=== PATIENT | female | born 1930 | race Caucasian/White ===

== ENCOUNTER 2018-05-17 14:06 | Inpatient (IN) | payer BC, OTHER ==
[2018-05-17] MEDS ORDERED: SODIUM CHLORIDE 1,000 ML IV STA (14:45)
[2018-05-17 15:23] LABS: EOS % 1.2 % (0-4.5); HEMATOCRIT 29.1 % (32.4-45.2); HEMOGLOBIN 9.5 GM/dL (10.7-15.3); LYMPH % 17.8 % (8-40); MCHC 32.7 g/dl (32.0-36.0); MEAN CELL VOLUME 79.5 fl (80-96); MEAN PLT VOLUME 7.9 fl (7.5-11.1); MONO % 7.3 % (3.8-10.2); NEUT % 72.7 % (42.8-82.8); PLATELET COUNT 280 K/MM3 (134-434); RBC 3.66 M/mm3 (3.60-5.2); RDW 17.3 % (11.6-15.6); WHITE BLOOD COUNT 9.5 K/mm3 (4.0-10.0)
--- NOTE | 2018-05-17 15:27 | PDOC ---
History of Present Illness - General Chief Complaint: Respiratory Stated Complaint: LUNG CONGESTION Time Seen by Provider: 05/17/18 14:10 - History of Present Illness Initial Comments: 05/17/18 15:19 The patient is an 87 year old female with a past medical history of hypothyroid , HLD, brain aneurysm who presents to the emergency department for evaluation of cough and generalized weakness. As per family at bedside, the patient has a 2 day history of non-productive cough with onset of labored breathing last night. As per family, patients visiting nurse heard abnormal lung sounds today , prompting her to advise the patient to be evaluated in the emergency department. The family also reports the patient had 11 loose bowel movements yesterday, described as non bloody. The patient reports mild intermittent abdominal pain. As per daughter at bedside, the patient has associated symptoms of dizziness, decreased appetite, urinary urgency with no output, and increased thirst. The patient denies recent use of antibiotics, swelling of extremities, recent falls, chest pain, and headache. Denies fevers, chills, nausea, vomiting, diarrhea, dysuria, and hematuria. Allergies: NKDA Social History: No reported alcohol, cigarette, or drug use. Surgical History: Spinal and abdominal. PCP: Dr. Richard Carroll Past History - Past Medical History Allergies/Adverse Reactions: Allergies Allergy/AdvReac Type Severity Reaction Status Date / Time No Known Allergies Allergy Verified 05/17/18 14:20 Home Medications: Ambulatory Orders Aspirin [ASA -] 81 mg PO DAILY 03/30/18 Cholecalciferol (Vitamin D3) [Vitamin D3] 1,000 unit PO BID 03/30/18 Cyanocobalamin [Vitamin B12 -] 1,000 mcg PO DAILY 03/30/18 Donepezil HCl [Aricept] 10 mg PO HS 03/30/18 Escitalopram Oxalate [Lexapro -] 10 mg PO HS 03/30/18 Levothyroxine [Synthroid -] 150 mcg PO DAILY 03/30/18 Simvastatin [Zocor -] 20 mg PO DAILY 03/30/18 Fentanyl 12 mcg TD Q72H 05/17/18 Latanoprost/Pf [Latanoprost 0.005% Eye Drop] 1 drop OU HS 05/17/18 Multivit-Min/Folic Acid/Vit K1 [Multi For Her 50 Plus Softgel] 1 each PO DAILY 05/17/18 COPD: No Dementia: Yes Hypercholesterolemia: Yes Thyroid Disease: Yes - Suicide/Smoking/Psychosocial Hx Smoking History: Former smoker Have you smoked in the past 12 months: No Number of Cigarettes Smoked Daily: 0 If you are a former smoker, when did you quit?: 0 Information on smoking cessation initiated: No Hx Alcohol Use: No Drug/Substance Use Hx: No Substance Use Type: None Review of Systems - Review of Systems Comments:: 05/17/18 15:22 GENERAL/CONSTITUTIONAL: (+)weakness. No fever or chills. HEAD, EYES, EARS, NOSE AND THROAT: No change in vision. No ear pain or discharge. No sore throat. CARDIOVASCULAR: (+)Shortness of breath. No chest pain. RESPIRATORY: (+)Cough.No wheezing, or hemoptysis. GASTROINTESTINAL: No nausea, vomiting, diarrhea or constipation. GENITOURINARY: (+)Urinary urgency. No dysuria or hematuria. MUSCULOSKELETAL: (+)Mild abdominal pain. No joint or muscle swelling or pain. No neck or back pain. SKIN: No rash NEUROLOGIC: No headache, vertigo, loss of consciousness, or change in strength/ sensation. ENDOCRINE: (+)increased thirst. No abnormal weight change. HEMATOLOGIC/LYMPHATIC: No anemia, easy bleeding, or history of blood clots. ALLERGIC/IMMUNOLOGIC: No hives or skin allergy. *Physical Exam - Vital Signs Last Vital Signs Temp Pulse Resp BP Pulse Ox 97.9 F 94 H 20 120/76 94 L 05/17/18 14:20 05/17/18 14:20 05/17/18 14:20 05/17/18 14:20 05/17/18 14:20 - Physical Exam Comments: 05/17/18 15:22 GENERAL: Awake, alert, and fully oriented, in no acute distress. HEAD: No signs of trauma EYES: PERRLA, EOMI, sclera anicteric, conjunctiva clear ENT: Auricles normal inspection, hearing grossly normal, nares patent, oropharynx clear without exudates. Moist mucosa NECK: Nontender, no stepoffs, Normal ROM, supple, no lymphadenopathy, JVD, or masses LUNGS: + bibasilar rales, Breath sounds equal, No wheezes, HEART: Regular rate and rhythm, normal S1 and S2, no murmurs, rubs or gallops ABDOMEN: + mild LLQ TTP, normoactive bowel sounds. No guarding, no rebound. No masses EXTREMITIES: Normal range of motion, no edema. No clubbing or cyanosis. No cords , erythema, or tenderness NEUROLOGICAL: Cranial nerves II through XII intact. 5/5 strength and sensation in all extremities, Normal speech, normal gait, normal cerebellar function SKIN: Warm, Dry, normal turgor, no rashes or lesions noted. ED Treatment Course - LABORATORY CBC & Chemistry Diagram: 05/17/18 15:20 05/17/18 15:13 - RADIOLOGY Radiology Studies Ordered: Category Date Time Status ABDOMEN & PELVIS CT WITH CONTR [CT] Stat CT Scan 05/17/18 14:42 Ordered CHEST PA & LAT [RAD] Stat Radiology 05/17/18 14:42 Ordered Medical Decision Making - Medical Decision Making 05/17/18 15:27 87 F with cough, weakness, and diarrhea. Exam notable for bibasilar rales on lung exam and LLQ TTP. Possible PNA. WIll also evaluate for colitis/ diverticulitis. - Labs - CXR - CTAP 05/17/18 16:52 UA consistent with UTI Pt started on ceftriaxone Pending CT Pt admitted to Dr. Garcia 05/17/18 19:03 CT shows possible small endoleak. Spoke with Dr. Blankenship and reviewed imaging report. He does not believe this is a significant finding. No indication for surgical intervention at this time. *DC/Admit/Observation/Transfer Diagnosis at time of Disposition: UTI (urinary tract infection) - Discharge Dispostion Decision to Admit order: Yes Decision to Admit order Date/Time: Decision to Admit Order Category Date Time Status Decision to Admit to Hospital Routine Admission 05/17/18 15:14 Ordered - Referrals - Patient Instructions - Post Discharge Activity - Attestations Physician Attestion: 05/17/18 16:53 I, Dr. Neftali Hankins MD, attest that this document has been prepared under my direction and personally reviewed by me in its entirety. I further attest, that it accurately reflects all work, treatment, procedures and medical decision -making performed by me.
[2018-05-17 15:41] LABS: URINE APPEARANCE CLOUDY; URINE BILIRUBIN NEGATIVE (<2.0 mg/dL); URINE COLOR AMBER; URINE GLUCOSE (UA) NEGATIVE (NEGATIVE); URINE KETONE NEGATIVE (NEGATIVE); URINE NITRITE POSITIVE (NEGATIVE); URINE PROTEIN NEGATIVE (NEGATIVE)
[2018-05-17 15:42] LABS: URINE LEUK ESTERASE 3+ (NEGATIVE)
[2018-05-17 15:46] LABS: EPI CELLS MODERATE /HPF (FEW); URINE BACTERIA MODERATE /hpf (NONE SEEN); URINE MUCUS RARE
[2018-05-17 15:56] LABS: ALBUMIN 2.8 g/dl (3.4-5.0); ALK PHOS 97 U/L (45-117); ANION GAP 3 MMOL/L (8-16); BILIRUBIN,TOTAL 0.4 mg/dL (0.2-1); BLOOD UREA NITROGEN 17 mg/dL (7-18); CALCIUM 8.6 mg/dL (8.5-10.1); CHLORIDE 104 mmol/L (98-107); CO2 29 mmol/L (21-32); CREATININE 0.3 mg/dL (0.55-1.3); GLUCOSE,RANDOM 94 mg/dL (74-106); LIPASE 102 U/L (73-393); N-TERMINAL BNP 290.6 pg/ml (5-450); POTASSIUM 3.9 mmol/L (3.5-5.1); SGOT/AST 12 U/L (15-37); SGPT/ALT 15 U/L (13-61); SODIUM 135 mmol/L (136-145); TOT PROT 6.1 g/dl (6.4-8.2)
[2018-05-17] MEDS ORDERED: CEFTRIAXONE 1,000 MG in DEXTROSE 5%-WATER - 50 ML IVPB ONE (16:09)
[2018-05-17] MEDS ORDERED: SODIUM CHLORIDE 0.45% 1,000 ML IV SCH (18:30)
[2018-05-17] MEDS ORDERED: FLU VACCINE QUAD 60 MCG/0.5 ML (MDV 18-19) IM ONE (18:54)
[2018-05-17] MEDS ORDERED: cefTRIAXone SODIUM 1 GM VIAL ONE (18:56)
[2018-05-17] MEDS ORDERED: DEXTROSE 5%-WATER - 50 ML IVPB ONE (18:56)
[2018-05-17] MEDS: CEFTRIAXONE 1 GM in DEXTROSE 5%-WATER - 50 ML IVPB SCH (18:59)
[2018-05-17] MEDS: ESCITALOPRAM OXALATE 10 MG TABLET (FP) PO SCH (21:27)
[2018-05-17] MEDS: LATANOPROST 0.005% OPHTH SOLN 2.5ML BOTTLE OU SCH (21:28)
[2018-05-17] MEDS: DONEPEZIL HCL 10 MG TABLET (FP) PO SCH (21:28)
[2018-05-18] MEDS: LEVOTHYROXINE NA 75 MCG TABLET (FP) PO SCH (06:26)
[2018-05-18 08:02] LABS: EOS % 1.9 % (0-4.5); HEMATOCRIT 25.7 % (32.4-45.2); HEMOGLOBIN 8.3 GM/dL (10.7-15.3); LYMPH % 13.9 % (8-40); MCH 25.9 pg (25.7-33.7); MCHC 32.5 g/dl (32.0-36.0); MEAN CELL VOLUME 79.6 fl (80-96); MONO % 6.5 % (3.8-10.2); NEUT % 76.7 % (42.8-82.8); PLATELET COUNT 215 K/MM3 (134-434); RBC 3.23 M/mm3 (3.60-5.2); RDW 16.9 % (11.6-15.6); WHITE BLOOD COUNT 7.7 K/mm3 (4.0-10.0)
[2018-05-18 08:26] LABS: ALBUMIN 2.4 g/dl (3.4-5.0); ALK PHOS 86 U/L (45-117); ANION GAP 7 MMOL/L (8-16); BILIRUBIN,TOTAL 0.3 mg/dL (0.2-1); BLOOD UREA NITROGEN 12 mg/dL (7-18); CALCIUM 8.3 mg/dL (8.5-10.1); CHLORIDE 103 mmol/L (98-107); CO2 29 mmol/L (21-32); CREATININE 0.2 mg/dL (0.55-1.3); GLUCOSE,RANDOM 90 mg/dL (74-106); POTASSIUM 3.7 mmol/L (3.5-5.1); SGOT/AST 14 U/L (15-37); SGPT/ALT 11 U/L (13-61); SODIUM 139 mmol/L (136-145); TOT PROT 5.5 g/dl (6.4-8.2)
[2018-05-18] MEDS ORDERED: DEXTROSE 5%-WATER - 50 ML IVPB ONE (09:25)
[2018-05-18] MEDS ORDERED: cefTRIAXone SODIUM 1 GM VIAL ONE (09:25)
[2018-05-18] MEDS: CEFTRIAXONE 1 GM in DEXTROSE 5%-WATER - 50 ML IVPB SCH (09:50)
[2018-05-18] MEDS: ASPIRIN 81 MG CHEWABLE TABLETS PO SCH (09:50)
--- NOTE | 2018-05-18 10:39 | HP ---
Admitting History and Physical - Primary Care Physician PCP: Richard Carroll - Admission Chief Complaint: cough, UTI History of Present Illness: ER HISTORY 05/17/18 15:19 The patient is an 87 year old female with a past medical history of hypothyroid , HLD, brain aneurysm who presents to the emergency department for evaluation of cough and generalized weakness. As per family at bedside, the patient has a 2 day history of non-productive cough with onset of labored breathing last night. As per family, patients visiting nurse heard abnormal lung sounds today , prompting her to advise the patient to be evaluated in the emergency department. The family also reports the patient had 11 loose bowel movements yesterday, described as non bloody. The patient reports mild intermittent abdominal pain. As per daughter at bedside, the patient has associated symptoms of dizziness, decreased appetite, urinary urgency with no output, and increased thirst. The patient denies recent use of antibiotics, swelling of extremities, recent falls, chest pain, and headache. Denies fevers, chills, nausea, vomiting, diarrhea, dysuria, and hematuria. Allergies: NKDA Social History: No reported alcohol, cigarette, or drug use. Surgical History: Spinal and abdominal. PCP: Dr. Richard Carroll Pt examined by me on the medical floor She is frail looking elderly female- lying in bed- no distress No SOB feels like she needs to urinate frequently Dementia spoke to daughter who said that she had been coughing while drinking water. Denies fever History Source: Family Member Limitations to Obtaining History: Dementia - Past Medical History Cardiovascular: Yes: HTN, Hyperlipdemia Endocrine: Yes: Hypothyroidism - Smoking History Smoking history: Former smoker Have you smoked in the past 12 months: No Aproximately how many cigarettes per day: 0 If you are a former smoker, when did you quit?: 0 - Alcohol/Substance Use Hx Alcohol Use: No Home Medications - Allergies Allergies/Adverse Reactions: Allergies Allergy/AdvReac Type Severity Reaction Status Date / Time No Known Allergies Allergy Verified 05/17/18 14:20 - Home Medications Home Medications: Ambulatory Orders Aspirin [ASA -] 81 mg PO DAILY 03/30/18 Cholecalciferol (Vitamin D3) [Vitamin D3] 1,000 unit PO BID 03/30/18 Cyanocobalamin [Vitamin B12 -] 1,000 mcg PO DAILY 03/30/18 Donepezil HCl [Aricept] 10 mg PO HS 03/30/18 Escitalopram Oxalate [Lexapro -] 10 mg PO HS 03/30/18 Levothyroxine [Synthroid -] 150 mcg PO DAILY 03/30/18 Simvastatin [Zocor -] 20 mg PO DAILY 03/30/18 Fentanyl 12 mcg TD Q72H 05/17/18 Latanoprost/Pf [Latanoprost 0.005% Eye Drop] 1 drop OU HS 05/17/18 Multivit-Min/Folic Acid/Vit K1 [Multi For Her 50 Plus Softgel] 1 each PO DAILY 05/17/18 Cefuroxime Axetil [Ceftin -] 500 mg PO Q12H #10 tablet 05/21/18 Review of Systems Unable to obtain ROS, reason: dementia Physical Examination Vital Signs: Vital Signs Temperature 98.1 F 05/18/18 06:56 Pulse Rate 95 H 05/18/18 06:56 Respiratory Rate 20 05/18/18 06:56 Blood Pressure 133/75 05/18/18 06:56 O2 Sat by Pulse Oximetry (%) 97 05/17/18 21:00 Constitutional: Yes: No Distress, Calm Cardiovascular: Yes: Regular Rate and Rhythm Respiratory: Yes: Diminished Gastrointestinal: Yes: Normal Bowel Sounds, Soft, Tenderness (suprapubic) Edema: No Labs: CBC, BMP 05/18/18 07:00 05/18/18 07:00 Imaging - Results Chest X-ray: Image Reviewed (NSR) Cat Scan: Report Reviewed Problem List - Problems (1) Anemia Code(s): D64.9 - ANEMIA, UNSPECIFIED (2) S/P AAA repair Code(s): Z98.890 - OTHER SPECIFIED POSTPROCEDURAL STATES; Z86.79 - PERSONAL HISTORY OF OTHER DISEASES OF THE CIRCULATORY SYSTEM (3) Severe protein-calorie malnutrition Code(s): E43 - UNSPECIFIED SEVERE PROTEIN-CALORIE MALNUTRITION (4) UTI (urinary tract infection) Code(s): N39.0 - URINARY TRACT INFECTION, SITE NOT SPECIFIED (5) Weakness generalized Code(s): R53.1 - WEAKNESS Assessment/Plan PLAN IV antibiotics await culture report CT scan reviewed- ER had discussed with DR Blankenship about endoleak - no further interventions per Surgeon. IV fluids x 24 hours Encourage diet spoke with daughter Pt is frail looking- will need to know advance directives Supportive car for now Heparin sc for DVT prophylaxis, SCD Fentanyl patch for vertebra fracture - recent history of fall
--- NOTE | 2018-05-18 11:56 | EKG ---
Test Reason : Blood Pressure : / mmHG Vent. Rate : 094 BPM Atrial Rate : 094 BPM P-R Int : 162 ms QRS Dur : 092 ms QT Int : 362 ms P-R-T Axes : 050 -40 046 degrees QTc Int : 452 ms NORMAL SINUS RHYTHM WITH SINUS ARRHYTHMIA LEFT AXIS DEVIATION INCOMPLETE RIGHT BUNDLE BRANCH BLOCK VOLTAGE CRITERIA FOR LEFT VENTRICULAR HYPERTROPHY ABNORMAL ECG WHEN COMPARED WITH ECG OF 01-OCT-2004 07:45, T WAVE AMPLITUDE HAS INCREASED IN ANTERIOR LEADS Confirmed by REMEDIOS BREEN, DEMARCO ([id number]) on 05/18/2018 11:56:33 AM Referred By: Confirmed By:DEMARCO WHITTAKER MD
--- NOTE | 2018-05-18 14:07 | CONSULT ---
Admitting History and Physical - Primary Care Physician PCP: Rafaela Garcia - Admission History of Present Illness: 87 F with cough, weakness, and diarrhea. Exam notable for bibasilar rales on lung exam and LLQ TTP. Possible PNA/colitis/diverticulitis. UA consistent with UTI CT shows possible small endoleak. Pt's family reports that she is coughing with solids and water at times, only having baby food and liquids. Poor dentition with root stubs noted. History Source: Family Member, Medical Record Limitations to Obtaining History: Clinical Condition - Smoking History Smoking history: Former smoker Have you smoked in the past 12 months: No Aproximately how many cigarettes per day: 0 If you are a former smoker, when did you quit?: 0 - Alcohol/Substance Use Hx Alcohol Use: No History - Admission Reason For Visit: COUGH - Diagnostics X-ray: Report Reviewed CT Scan: Report Reviewed - General Mental Status: Awake and Alert, Able to Follow Commands, Forgetful, Confused Attention: Intact Ability to Follow Directions: Fair Head/Neck Control: Fair (c/o back pain. Pt can not sit up, fed reclining at home.) - Hearing Hearing: Impaired Hearing Aide: No With Patient: No Speech Evaluation - Communication Primary Language: EGYPTIAN Communication: Yes: Simple Responses - Speech Production Able to Make Needs Known: Yes: WNL Intelligibility: Yes: WNL - Speech Characteristics Voice Loudness: Normal Voice Pitch: Yes: Normal Voice Phonatory-based Quality: Yes: Normal Speech Pattern: Normal Speech Clarity: < 100% Nasal Resonance: Normal Articulation: Yes: Precise - Language/Auditory Comprehension Follows: Yes: 1 Stage Simple Commands Observation: Able to respond to yes/no queries: Yes, Comprehends Conversational Speech: Yes (simple), Benefits from Increased Volume of Speech: Yes (chemehuevi) - Language/Verbal Expression Able to Communicate Wants and Needs: Yes: WNL - Swallow Evaluation/Bedside Assessment Current Nutritional Intake: Dysphagia Pureed, Thin Liquids Oral Secretions: Yes: WFL Dentition: Yes: Edentulous (poor dental care. roots) Facial Symmetry at Rest: Symmetrical Facial Symmetry on Retraction: Symmetrical Facial Movement: Controlled Sensation: Normal Against Resistance Opening: Normal Against Resistance Closing: Normal Pucker Lips: Normal Smile: Normal Lingual Movement: Normal, Symmetric Lingual Speed of Movement: Normal Lingual Movement Strgth Against Opposition: Normal Lingual Movement Characteristics: Normal Velopharyngeal Movement: Normal Laryngeal Elevation: WFL Laryngeal Movement: Able to Palpate Rate of Intake: WFL Bolus Size: WFL Labial Seal: WFL Chewing: Impaired Oral Prep Time: WFL A-P Transit: WFL Pocketing: None Timing of Swallow: WFL Coughing/Throat Clear: No Change in Voice: No Recommendations - Speech Evaluation, Impression/Plan Impression: Pt's family reports that she is coughing with solids and water at times, "only having baby food and liquids" at home. Poor dentition with root stubs noted.c/o back pain. Pt can not sit up, fed reclining at home. Swallow seems brisk with good tolerance of puree/thin liquid. - Dysphagia Impressions/Plan Dysphagia Impressions: Minimal Impairment, Ongoing Evaluation *Silent aspiration: cannot be R/O at bedside Dysphagia Treatment Plan: Small Bites, Chin Tuck/Down, Trial Feedings, Facilitative Feeding, Safe Rate, 1/2 tsp. at a time, Elevate HOB during feed ( as tolerates), Other (monitor po tolerance) Recommendations: Modified Barium Swallow (deferred deue to baqck pain. Overtly, swallow is functional) - Recommendations Diet Consistency: Dysphagia Pureed Medication Administration: Crushed with applesauce Liquids: Thin Liquids Supplement: Ensure, Magic Cup, Ensure Pudding
[2018-05-18 16:07] VITALS: BMI 19.3
[2018-05-18] MEDS ORDERED: PHENAZOPYRIDINE HCL 100 MG TABLET (FP) PO PRN (16:19)
[2018-05-18] MEDS: ESCITALOPRAM OXALATE 10 MG TABLET (FP) PO SCH (21:58)
[2018-05-18] MEDS: ATORVASTATIN CA 10 MG TABLET (FP) PO SCH (21:58)
[2018-05-18] MEDS: DONEPEZIL HCL 10 MG TABLET (FP) PO SCH (21:58)
[2018-05-18] MEDS: LATANOPROST 0.005% OPHTH SOLN 2.5ML BOTTLE OU SCH (21:58)
[2018-05-18] MEDS ORDERED: HEPARIN NA (PORCINE) 5,000 UNITS/ML 1ML VIAL SQ SCH (22:00)
[2018-05-19] MEDS: LEVOTHYROXINE NA 75 MCG TABLET (FP) PO SCH (06:32)
[2018-05-19] MEDS ORDERED: DEXTROSE 5%-WATER - 50 ML IVPB ONE (08:22)
[2018-05-19] MEDS ORDERED: cefTRIAXone SODIUM 1 GM VIAL ONE (08:22)
[2018-05-19] MEDS ORDERED: PT OWN MED DRAWER 7, Y5N ONE ×2 (08:23→20:01)
[2018-05-19] MEDS: CEFTRIAXONE 1 GM in DEXTROSE 5%-WATER - 50 ML IVPB SCH (08:27)
[2018-05-19] MEDS ORDERED: fentaNYL 12mcg/hr PATCH.TD72 TD SCH (10:00)
--- NOTE | 2018-05-19 10:12 | PN ---
Progress Note (short form) - Note Progress Note: weak no complaints has an appetite Vital Signs - 24 hr 05/18/18 05/18/18 05/18/18 15:41 17:11 21:00 Temperature 97.2 F L 97.9 F Pulse Rate 80 100 H Respiratory 18 20 Rate Blood Pressure 123/77 121/81 O2 Sat by Pulse 96 Oximetry (%) 05/18/18 05/19/18 22:00 06:30 Temperature 98.4 F 97.7 F Pulse Rate 102 H 96 H Respiratory 20 20 Rate Blood Pressure 128/86 157/87 O2 Sat by Pulse Oximetry (%) Current Medications Generic Name Dose Route Start Last Admin Trade Name Freq PRN Reason Stop Dose Admin Acetaminophen 650 mg 05/18/18 10:52 Tylenol - PO Q4H PRN FEVER Aspirin 81 mg 05/18/18 10:00 05/18/18 09:50 Asa - PO 81 mg DAILY REBEKAH Administration Atorvastatin Calcium 10 mg 05/18/18 22:00 05/18/18 21:58 Lipitor - PO 10 mg HS REBEKAH Administration Donepezil HCl 10 mg 05/17/18 22:00 05/18/18 21:58 Aricept - PO 10 mg HS REBEKAH Administration Escitalopram Oxalate 10 mg 05/17/18 22:00 05/18/18 21:58 Lexapro - PO 10 mg HS REBEKAH Administration Fentanyl 12 patch 05/19/18 10:00 Duragesic 12mcg Patch - TD Q3D@1000 REBEKAH Ceftriaxone Sodium 1 gm/ 50 mls @ 100 mls/hr 05/17/18 19:00 05/19/18 08:27 Dextrose IVPB 100 mls/hr DAILY@0800 REBEKAH Administration Latanoprost 1 drop 05/17/18 22:00 05/18/18 21:58 Xalatan 0.005% Eye Drops - OU 1 drop HS REBEKAH Administration Levothyroxine Sodium 150 mcg 05/18/18 07:00 05/19/18 06:32 Synthroid - PO 150 mcg DAILY@0700 REBEKAH Administration Miscellaneous 1 each 05/17/18 18:57 Duragesic Patch Waste TD PRN PRN WASTE Phenazopyridine HCl 100 mg 05/19/18 10:15 Pyridium - PO Q8H REBEKAH s1s2 RRR Lungs clear Abd- soft, tender suprapubic no edema plan iv antibiotics continue with meds pyridium for pain relief for UTI pt has home care ER spoke with Vascular about endoleak-- pt had a recent AAA repair last month- no interventions per Vascular Problem List - Problems (1) Severe protein-calorie malnutrition Code(s): E43 - UNSPECIFIED SEVERE PROTEIN-CALORIE MALNUTRITION (2) Functional quadriplegia Code(s): R53.2 - FUNCTIONAL QUADRIPLEGIA (3) Anemia Code(s): D64.9 - ANEMIA, UNSPECIFIED (4) S/P AAA repair Code(s): Z98.890 - OTHER SPECIFIED POSTPROCEDURAL STATES; Z86.79 - PERSONAL HISTORY OF OTHER DISEASES OF THE CIRCULATORY SYSTEM (5) UTI (urinary tract infection) Code(s): N39.0 - URINARY TRACT INFECTION, SITE NOT SPECIFIED (6) Weakness generalized Code(s): R53.1 - WEAKNESS
[2018-05-19] MEDS: ACETAMINOPHEN 325 MG TABLET (FP) PO PRN ×2 (10:57→21:50)
[2018-05-19] MEDS: fentaNYL 12mcg/hr PATCH.TD72 TD SCH (10:57)
[2018-05-19] MEDS: ASPIRIN 81 MG CHEWABLE TABLETS PO SCH (10:58)
[2018-05-19] MEDS: FENTANYL PATCH WASTE TD PRN (11:29)
[2018-05-19] MEDS: PHENAZOPYRIDINE HCL 100 MG TABLET (FP) PO SCH ×2 (14:48→21:49)
[2018-05-19] MEDS: ESCITALOPRAM OXALATE 10 MG TABLET (FP) PO SCH (21:48)
[2018-05-19] MEDS: DONEPEZIL HCL 10 MG TABLET (FP) PO SCH (21:49)
[2018-05-19] MEDS: LATANOPROST 0.005% OPHTH SOLN 2.5ML BOTTLE OU SCH (21:49)
[2018-05-19] MEDS: ATORVASTATIN CA 10 MG TABLET (FP) PO SCH (21:49)
[2018-05-20] MEDS: LEVOTHYROXINE NA 75 MCG TABLET (FP) PO SCH (06:37)
[2018-05-20] MEDS: PHENAZOPYRIDINE HCL 100 MG TABLET (FP) PO SCH ×3 (06:38→21:34)
--- NOTE | 2018-05-20 08:27 | CONSULT ---
Consult - text type - Consultation Consultation Note: 87 year old woman who recently underwent endovascular repair of 8 cm AAA. Aneurysm was discovered during work-up of back pain after a fall. She was sent to Rehab afetr surgery and is now complaining of cough and generalized weakness. A CTA showed the aneurysm sac has decreased in size to 5 cm and there is evidence of a small endoleak. On exam the abdomen is soft, non-tender. Femoral pulses 2+ Imp: S/p EVAR for AAA with decreased size of aneurysm sac. CT shows Type 2 endo leak. In general, these types of endoleak can be observed as, in this case, the aneurysm sac is not enlarging. Follow-up with Duplex ultrasound every 3 months is needed. If the sac starts to enlarge additional imaging will be needed.
[2018-05-20] MEDS ORDERED: cefTRIAXone SODIUM 1 GM VIAL ONE (08:52)
[2018-05-20] MEDS ORDERED: DEXTROSE 5%-WATER - 50 ML IVPB ONE (08:53)
[2018-05-20] MEDS: CEFTRIAXONE 1 GM in DEXTROSE 5%-WATER - 50 ML IVPB SCH (08:56)
[2018-05-20] MEDS ORDERED: PT OWN MED DRAWER 7, Y5N ONE ×2 (09:22→13:23)
[2018-05-20] MEDS: ACETAMINOPHEN 325 MG TABLET (FP) PO PRN (09:26)
[2018-05-20] MEDS: ASPIRIN 81 MG CHEWABLE TABLETS PO SCH (09:26)
--- NOTE | 2018-05-20 12:08 | PN ---
Progress Note, Physician History of Present Illness: pt seen/ examined. chart reviewed awake. weak no distress. vascular f/u noted - Current Medication List Current Medications: Active Medications Acetaminophen (Tylenol -) 650 mg PO Q4H PRN PRN Reason: FEVER Last Admin: 05/20/18 09:26 Dose: 650 mg Aspirin (Asa -) 81 mg PO DAILY [facility] Last Admin: 05/20/18 09:26 Dose: 81 mg Atorvastatin Calcium (Lipitor -) 10 mg PO [facility] Last Admin: 05/19/18 21:49 Dose: 10 mg Donepezil HCl (Aricept -) 10 mg PO [facility] Last Admin: 05/19/18 21:49 Dose: 10 mg Escitalopram Oxalate (Lexapro -) 10 mg PO [facility] Last Admin: 05/19/18 21:48 Dose: 10 mg Fentanyl (Duragesic 12mcg Patch -) 1 patch TD Q3D@1000 [facility] Last Admin: 05/19/18 10:57 Dose: 1 patch Ceftriaxone Sodium 1 gm/ (Dextrose) 50 mls @ 100 mls/hr IVPB DAILY@0800 [facility] Last Admin: 05/20/18 08:56 Dose: 100 mls/hr Latanoprost (Xalatan 0.005% Eye Drops -) 1 drop OU [facility] Last Admin: 05/19/18 21:49 Dose: 1 drop Levothyroxine Sodium (Synthroid -) 150 mcg PO DAILY@0700 [facility] Last Admin: 05/20/18 06:37 Dose: 150 mcg Miscellaneous (Duragesic Patch Waste) 1 each TD PRN PRN PRN Reason: WASTE Last Admin: 05/19/18 11:29 Dose: 1 each Phenazopyridine HCl (Pyridium -) 100 mg PO TID [facility] Last Admin: 05/20/18 06:38 Dose: 100 mg - Objective Vital Signs: Vital Signs Temperature 97.5 F L 05/20/18 08:25 Pulse Rate 79 05/20/18 08:25 Respiratory Rate 18 05/20/18 08:25 Blood Pressure 130/81 05/20/18 08:25 O2 Sat by Pulse Oximetry (%) 95 05/19/18 21:00 Constitutional: Yes: Cachectic Neck: Yes: Supple Cardiovascular: Yes: Regular Rate and Rhythm Respiratory: Yes: Diminished. No: Stridor Gastrointestinal: Yes: Normal Bowel Sounds, Soft Edema: No Neurological: Yes: Alert Labs: CBC, BMP 05/18/18 07:00 05/18/18 07:00 Problem List - Problems (1) Weakness generalized Code(s): R53.1 - WEAKNESS (2) UTI (urinary tract infection) Code(s): N39.0 - URINARY TRACT INFECTION, SITE NOT SPECIFIED (3) Anemia Code(s): D64.9 - ANEMIA, UNSPECIFIED (4) S/P AAA repair Code(s): Z98.890 - OTHER SPECIFIED POSTPROCEDURAL STATES; Z86.79 - PERSONAL HISTORY OF OTHER DISEASES OF THE CIRCULATORY SYSTEM Assessment/Plan Continue abx physical therapy looks very weak monitor cbc/ electrolytes daily oob - chair likely will need str will discuss
[2018-05-20] MEDS: ATORVASTATIN CA 10 MG TABLET (FP) PO SCH (21:34)
[2018-05-20] MEDS: ESCITALOPRAM OXALATE 10 MG TABLET (FP) PO SCH (21:34)
[2018-05-20] MEDS: DONEPEZIL HCL 10 MG TABLET (FP) PO SCH (21:34)
[2018-05-20] MEDS: LATANOPROST 0.005% OPHTH SOLN 2.5ML BOTTLE OU SCH (21:35)
[2018-05-21] MEDS: ACETAMINOPHEN 325 MG TABLET (FP) PO PRN ×3 (06:40→19:03)
[2018-05-21] MEDS: PHENAZOPYRIDINE HCL 100 MG TABLET (FP) PO SCH ×3 (06:40→22:08)
[2018-05-21] MEDS: LEVOTHYROXINE NA 75 MCG TABLET (FP) PO SCH (06:40)
[2018-05-21 07:56] LABS: BASO % 0.8 % (0-2.0); EOS % 1.1 % (0-4.5); HEMATOCRIT 27.1 % (32.4-45.2); HEMOGLOBIN 8.7 GM/dL (10.7-15.3); LYMPH % 11.7 % (8-40); MCH 25.4 pg (25.7-33.7); MEAN CELL VOLUME 79.5 fl (80-96); MONO % 5.9 % (3.8-10.2); NEUT % 80.5 % (42.8-82.8); PLATELET COUNT 270 K/MM3 (134-434); RBC 3.41 M/mm3 (3.60-5.2); RDW 16.6 % (11.6-15.6)
[2018-05-21 08:29] LABS: ALBUMIN 2.6 g/dl (3.4-5.0); ALK PHOS 85 U/L (45-117); ANION GAP 7 MMOL/L (8-16); BILIRUBIN,TOTAL 0.2 mg/dL (0.2-1); BLOOD UREA NITROGEN 20 mg/dL (7-18); CHLORIDE 102 mmol/L (98-107); CO2 33 mmol/L (21-32); CREATININE 0.3 mg/dL (0.55-1.3); GLUCOSE,RANDOM 82 mg/dL (74-106); POTASSIUM 3.6 mmol/L (3.5-5.1); SGOT/AST 9 U/L (15-37); SGPT/ALT 12 U/L (13-61); SODIUM 141 mmol/L (136-145); TOT PROT 5.8 g/dl (6.4-8.2)
[2018-05-21] MEDS ORDERED: cefTRIAXone SODIUM 1 GM VIAL ONE (09:11)
[2018-05-21] MEDS ORDERED: DEXTROSE 5%-WATER - 50 ML IVPB ONE (09:11)
[2018-05-21] MEDS: ASPIRIN 81 MG CHEWABLE TABLETS PO SCH (09:16)
[2018-05-21] MEDS: CEFTRIAXONE 1 GM in DEXTROSE 5%-WATER - 50 ML IVPB SCH (09:16)
--- NOTE | 2018-05-21 11:54 | DS ---
Physical Examination Vital Signs: Vital Signs Temperature 98.0 F 05/21/18 10:00 Pulse Rate 91 H 05/21/18 10:00 Respiratory Rate 20 05/21/18 10:00 Blood Pressure 114/77 05/21/18 10:00 O2 Sat by Pulse Oximetry (%) 95 05/20/18 21:00 Labs: CBC, BMP 05/21/18 06:40 05/21/18 06:40 Discharge Summary Reason For Visit: COUGH Current Active Problems Anemia (Acute) S/P AAA repair (Acute) UTI (urinary tract infection) (Acute) Weakness generalized (Acute) - Instructions Referrals: Richard Carroll MD [Primary Care Provider] - - Home Medications Comprehensive Discharge Medication List: Ambulatory Orders Aspirin [ASA -] 81 mg PO DAILY 03/30/18 Cholecalciferol (Vitamin D3) [Vitamin D3] 1,000 unit PO BID 03/30/18 Cyanocobalamin [Vitamin B12 -] 1,000 mcg PO DAILY 03/30/18 Donepezil HCl [Aricept] 10 mg PO HS 03/30/18 Escitalopram Oxalate [Lexapro -] 10 mg PO HS 03/30/18 Levothyroxine [Synthroid -] 150 mcg PO DAILY 03/30/18 Simvastatin [Zocor -] 20 mg PO DAILY 03/30/18 Fentanyl 12 mcg TD Q72H 05/17/18 Latanoprost/Pf [Latanoprost 0.005% Eye Drop] 1 drop OU HS 05/17/18 Multivit-Min/Folic Acid/Vit K1 [Multi For Her 50 Plus Softgel] 1 each PO DAILY 05/17/18
--- NOTE | 2018-05-21 13:26 | PN ---
Progress Note (short form) - Note Progress Note: weak no complaints pain decreased Vital Signs - 24 hr Vital Signs - 24 hr 05/20/18 05/20/18 05/21/18 21:00 21:31 06:00 Temperature 98.9 F 98.0 F Pulse Rate 108 H 91 H Respiratory 20 20 20 Rate Blood Pressure 130/84 117/73 O2 Sat by Pulse 95 Oximetry (%) 05/21/18 05/21/18 05/21/18 09:00 10:00 15:55 Temperature 98.0 F 98.4 F Pulse Rate 91 H 100 H Respiratory 20 20 20 Rate Blood Pressure 114/77 110/71 O2 Sat by Pulse 94 L Oximetry (%) Current Medications Generic Name Dose Route Start Last Admin Trade Name Freq PRN Reason Stop Dose Admin Acetaminophen 650 mg 05/18/18 10:52 05/21/18 10:15 Tylenol - PO 650 mg Q4H PRN Administration FEVER Aspirin 81 mg 05/18/18 10:00 05/21/18 09:16 Asa - PO 81 mg DAILY REBEKAH Administration Atorvastatin Calcium 10 mg 05/18/18 22:00 05/20/18 21:34 Lipitor - PO 10 mg HS REBEKAH Administration Cefuroxime Axetil 500 mg 05/21/18 22:00 Ceftin - PO BID REBEKAH Donepezil HCl 10 mg 05/17/18 22:00 05/20/18 21:34 Aricept - PO 10 mg HS REBEKAH Administration Escitalopram Oxalate 10 mg 05/17/18 22:00 05/20/18 21:34 Lexapro - PO 10 mg HS REBEKAH Administration Fentanyl 1 patch 05/19/18 10:50 05/19/18 10:57 Duragesic 12mcg Patch - TD 1 patch Q3D@1000 REBEKAH Administration Latanoprost 1 drop 05/17/18 22:00 05/20/18 21:35 Xalatan 0.005% Eye Drops - OU 1 drop HS REBEKAH Administration Levothyroxine Sodium 150 mcg 05/18/18 07:00 05/21/18 06:40 Synthroid - PO 150 mcg DAILY@0700 REBEKAH Administration Miscellaneous 1 each 05/17/18 18:57 05/19/18 11:29 Duragesic Patch Waste TD 1 each PRN PRN Administration WASTE Phenazopyridine HCl 100 mg 05/19/18 14:00 05/21/18 14:04 Pyridium - PO 100 mg TID REBEKAH Administration Laboratory Results - last 24 hr 05/21/18 05/21/18 06:40 06:40 WBC 13.0 H RBC 3.41 L Hgb 8.7 L Hct 27.1 L MCV 79.5 L MCH 25.4 L MCHC 32.0 RDW 16.6 H Plt Count 270 D MPV 8.0 Absolute Neuts (auto) 10.4 H Neutrophils % 80.5 Lymphocytes % 11.7 Monocytes % 5.9 Eosinophils % 1.1 Basophils % 0.8 Nucleated RBC % 0 Sodium 141 Potassium 3.6 Chloride 102 Carbon Dioxide 33 H Anion Gap 7 L BUN 20 H Creatinine 0.3 L Creat Clearance w eGFR > 60 Random Glucose 82 Calcium 9.0 Total Bilirubin 0.2 AST 9 L ALT 12 L Alkaline Phosphatase 85 Total Protein 5.8 L Albumin 2.6 L s1s2 RRR Lungs clear Abd- soft, tender suprapubic no edema plan iv antibiotics continue with meds pyridium for pain relief for UTI pt has home care V[facility] eval noted spoke with daughter, they are unable to care for her at home may need str po antibiotics
[2018-05-21] MEDS ORDERED: ARTIFICIAL TEARS (POLYVINYL ALCOHOL) OPTH DROPS OU PRN (18:46)
[2018-05-21] MEDS ORDERED: PT OWN MED DRAWER 7, Y5N ONE (21:44)
[2018-05-21] MEDS: ESCITALOPRAM OXALATE 10 MG TABLET (FP) PO SCH (22:08)
[2018-05-21] MEDS: ATORVASTATIN CA 10 MG TABLET (FP) PO SCH (22:08)
[2018-05-21] MEDS: DONEPEZIL HCL 10 MG TABLET (FP) PO SCH (22:09)
[2018-05-21] MEDS: CEFUROXIME AXETIL 500 MG TABLET PO SCH (22:13)
[2018-05-21] MEDS: LATANOPROST 0.005% OPHTH SOLN 2.5ML BOTTLE OU SCH (22:13)
[2018-05-22] MEDS: LEVOTHYROXINE NA 75 MCG TABLET (FP) PO SCH (05:41)
[2018-05-22] MEDS: PHENAZOPYRIDINE HCL 100 MG TABLET (FP) PO SCH ×2 (06:42→13:23)
[2018-05-22] MEDS: CEFUROXIME AXETIL 500 MG TABLET PO SCH (10:37)
[2018-05-22] MEDS: ASPIRIN 81 MG CHEWABLE TABLETS PO SCH (10:37)
[2018-05-22] MEDS: fentaNYL 12mcg/hr PATCH.TD72 TD SCH (10:38)
--- NOTE | 2018-05-22 10:48 | PN ---
Progress Note (short form) - Note Progress Note: weak no complaints pain decreased Selected Entries 05/22/18 05/22/18 14:30 21:00 Temperature 99.6 F Pulse Rate 103 H Respiratory 20 Rate Blood Pressure 96/62 O2 Sat by Pulse 94 L Oximetry (%) s1s2 RRR Lungs clear Abd- soft, tender suprapubic no edema plan iv antibiotics-->change to PO continue with meds pyridium - dc as pt's daughter thinks she is yellow- I explained that it is probably due to Pyridium as her LFT are normal pt has home care [facility] [place] noted spoke with daughter, they are unable to care for her at home, they are not ready to take her home. She was given a list of Nursing homes from the director of casework services here may need str po antibiotics
[2018-05-22] MEDS: FENTANYL PATCH WASTE TD PRN (10:54)
[2018-05-22] MEDS ORDERED: PT OWN MED DRAWER 7, Y5N ONE ×2 (13:19→21:37)
[2018-05-22] MEDS: ATORVASTATIN CA 10 MG TABLET (FP) PO SCH (21:31)
[2018-05-22] MEDS: ESCITALOPRAM OXALATE 10 MG TABLET (FP) PO SCH (21:31)
[2018-05-22] MEDS: DONEPEZIL HCL 10 MG TABLET (FP) PO SCH (21:31)
[2018-05-22] MEDS: LATANOPROST 0.005% OPHTH SOLN 2.5ML BOTTLE OU SCH (21:38)
[2018-05-22] MEDS ORDERED: CEFUROXIME AXETIL 250 MG/5 ML BOTTLE PO SCH ×2 (22:00)
[2018-05-23] MEDS: LEVOTHYROXINE NA 75 MCG TABLET (FP) PO SCH (06:22)
--- NOTE | 2018-05-23 09:37 | PN ---
Progress Note (short form) - Note Progress Note: weak no complaints has a fair appetite has pain in back Vital Signs - 24 hr 05/22/18 05/22/18 05/23/18 21:00 22:00 07:24 Temperature 98.6 F 98.1 F Pulse Rate 103 H 98 H Respiratory 20 20 Rate Blood Pressure 102/68 198/60 H O2 Sat by Pulse 94 L Oximetry (%) 05/23/18 05/23/18 05/23/18 09:00 10:00 15:13 Temperature 97.8 F 98.0 F Pulse Rate 98 H 94 H Respiratory 20 20 18 Rate Blood Pressure 98/67 117/73 O2 Sat by Pulse 94 L Oximetry (%) Current Medications Generic Name Dose Route Start Last Admin Trade Name Freq PRN Reason Stop Dose Admin Acetaminophen 650 mg 05/18/18 10:52 05/23/18 09:49 Tylenol - PO 650 mg Q4H PRN Administration FEVER Artificial Tears 1 drop 05/21/18 18:46 Artificial Tears OU Q6H PRN DRY EYES Aspirin 81 mg 05/18/18 10:00 05/23/18 09:49 Asa - PO 81 mg DAILY REBEKAH Administration Atorvastatin Calcium 10 mg 05/18/18 22:00 05/22/18 21:31 Lipitor - PO 10 mg HS REBEKAH Administration Cefuroxime Axetil 500 mg 05/23/18 22:00 Ceftin - PO BID REBEKAH Donepezil HCl 10 mg 05/17/18 22:00 05/22/18 21:31 Aricept - PO 10 mg HS REBEKAH Administration Escitalopram Oxalate 10 mg 05/17/18 22:00 05/22/18 21:31 Lexapro - PO 10 mg HS REBEKAH Administration Fentanyl 1 patch 05/19/18 10:50 05/22/18 10:38 Duragesic 12mcg Patch - TD 1 patch Q3D@1000 REBEKAH Administration Latanoprost 1 drop 05/17/18 22:00 05/22/18 21:38 Xalatan 0.005% Eye Drops - OU 1 drop HS REBEKAH Administration Levothyroxine Sodium 150 mcg 05/18/18 07:00 05/23/18 06:22 Synthroid - PO 150 mcg DAILY@0700 REBEKAH Administration Miscellaneous 1 each 05/17/18 18:57 05/22/18 10:54 Duragesic Patch Waste TD 1 each PRN PRN Administration WASTE Potassium Chloride 40 meq 05/23/18 18:36 Potassium Chloride Oral Liquid PO 05/23/18 18:37 ONCE ONE Laboratory Results - last 24 hr 05/23/18 16:00 Sodium 141 Potassium 3.4 L Chloride 100 Carbon Dioxide 29 Anion Gap 11 BUN 36 H Creatinine 0.7 Creat Clearance w eGFR > 60 Random Glucose 105 Calcium 8.9 Total Bilirubin 0.2 AST 14 L ALT 13 Alkaline Phosphatase 88 Total Protein 5.5 L Albumin 2.3 L s1s2 RRR Lungs clear Abd- soft, tender suprapubic no edema normal sclera plan iv antibiotics-->changed to PO continue with meds may need str po antibiotics daughter would like second opinion about discharge replace Potassium spoke with family independence case manager and pt relations requested the hospitalist for evaluation for discharge Pt is stable for dc to NH for management of pain and for physical therapy for back pain , she will need repeat imaging of cta abd in 2-3 months
[2018-05-23] MEDS: ACETAMINOPHEN 325 MG TABLET (FP) PO PRN (09:49)
[2018-05-23] MEDS: ASPIRIN 81 MG CHEWABLE TABLETS PO SCH (09:49)
[2018-05-23] MEDS ORDERED: FENTANYL PATCH WASTE TD PRN (10:18)
[2018-05-23] MEDS ORDERED: fentaNYL 12mcg/hr PATCH.TD72 TD SCH (10:30)
[2018-05-23 17:32] LABS: ALBUMIN 2.3 g/dl (3.4-5.0); ALK PHOS 88 U/L (45-117); ANION GAP 11 MMOL/L (8-16); BILIRUBIN,TOTAL 0.2 mg/dL (0.2-1); BLOOD UREA NITROGEN 36 mg/dL (7-18); CALCIUM 8.9 mg/dL (8.5-10.1); CHLORIDE 100 mmol/L (98-107); CO2 29 mmol/L (21-32); CREATININE 0.7 mg/dL (0.55-1.3); GLUCOSE,RANDOM 105 mg/dL (74-106); POTASSIUM 3.4 mmol/L (3.5-5.1); SGOT/AST 14 U/L (15-37); SGPT/ALT 13 U/L (13-61); SODIUM 141 mmol/L (136-145); TOT PROT 5.5 g/dl (6.4-8.2)
[2018-05-23] MEDS ORDERED: POTASSIUM CHLORIDE ORAL LIQUID 20 MEQ/15 ML PO ONE (19:30)
--- NOTE | 2018-05-23 20:14 | PN ---
Problem List - Problems (1) Functional quadriplegia Code(s): R53.2 - FUNCTIONAL QUADRIPLEGIA (2) S/P AAA repair Code(s): Z98.890 - OTHER SPECIFIED POSTPROCEDURAL STATES; Z86.79 - PERSONAL HISTORY OF OTHER DISEASES OF THE CIRCULATORY SYSTEM (3) Severe protein-calorie malnutrition Code(s): E43 - UNSPECIFIED SEVERE PROTEIN-CALORIE MALNUTRITION (4) UTI (urinary tract infection) Code(s): N39.0 - URINARY TRACT INFECTION, SITE NOT SPECIFIED (5) Weakness generalized Code(s): R53.1 - WEAKNESS
[2018-05-23] MEDS ORDERED: PT OWN MED DRAWER 7, Y5N ONE ×2 (21:00→21:16)
[2018-05-23] MEDS: ATORVASTATIN CA 10 MG TABLET (FP) PO SCH (21:06)
[2018-05-23] MEDS: CEFUROXIME AXETIL 500 MG TABLET PO SCH (21:06)
[2018-05-23] MEDS: ESCITALOPRAM OXALATE 10 MG TABLET (FP) PO SCH (21:06)
[2018-05-23] MEDS: DONEPEZIL HCL 10 MG TABLET (FP) PO SCH (21:06)
[2018-05-23] MEDS: LATANOPROST 0.005% OPHTH SOLN 2.5ML BOTTLE OU SCH (21:58)
[2018-05-24] MEDS: LEVOTHYROXINE NA 75 MCG TABLET (FP) PO SCH (06:16)
[2018-05-24] MEDS ORDERED: PT OWN MED DRAWER 7, Y5N ONE ×5 (06:38→17:47)
[2018-05-24] MEDS: CEFUROXIME AXETIL 500 MG TABLET PO SCH (09:42)
[2018-05-24] MEDS: ASPIRIN 81 MG CHEWABLE TABLETS PO SCH (09:42)
--- NOTE | 2018-05-24 11:12 | PN ---
Physical Exam: SUBJECTIVE: Patient seen and examined at bedside. States several times she has the urge to urinate but denies dysuria. Family member at bedside. Left lid lag is chronic, occurred after brain aneurysm x 30+ years. OBJECTIVE: Vital Signs Period Temp Pulse Resp BP Sys/Martinez Pulse Ox Last 24 Hr 96.7 F-98.3 F 87-94 18-18 85-133/49-75 94 GENERAL: A&Ox1 (year: "almost 18"; month: August; does not know where she is) HEAD: Normal with no signs of trauma. EYES: Left lid lag LUNGS: Breath sounds equal, clear to auscultation bilaterally, no wheezes, no crackles, no accessory muscle use. HEART: Regular rate and rhythm, S1, S2, +murmur ABDOMEN: Soft, nontender, nondistended, normoactive bowel sounds, no guarding, no rebound; left CVA tenderness EXTREMITIES: 2+ pulses, warm, well-perfused, no edema. SCDs NEUROLOGICAL: Cranial nerves II through XII grossly intact. Normal speech, gait not observed. PSYCH: Depressed affect. "What am I doing here. I wish I were . My parents are . My is ." SKIN: Warm, dry, normal turgor, no rashes or lesions noted. Skin is intact. Laboratory Results - last 24 hr 05/23/18 16:00 Sodium 141 Potassium 3.4 L Chloride 100 Carbon Dioxide 29 Anion Gap 11 BUN 36 H Creatinine 0.7 Creat Clearance w eGFR > 60 Random Glucose 105 Calcium 8.9 Total Bilirubin 0.2 AST 14 L ALT 13 Alkaline Phosphatase 88 Total Protein 5.5 L Albumin 2.3 L Active Medications Generic Name Dose Route Start Last Admin Trade Name Freq PRN Reason Stop Dose Admin Acetaminophen 650 mg 05/18/18 10:52 05/23/18 09:49 Tylenol - PO 650 mg Q4H PRN Administration FEVER Artificial Tears 1 drop 05/21/18 18:46 05/23/18 21:06 Artificial Tears OU 1 drop Q6H PRN Administration DRY EYES Aspirin 81 mg 05/18/18 10:00 05/24/18 09:42 Asa - PO 81 mg DAILY REBEKAH Administration Atorvastatin Calcium 10 mg 05/18/18 22:00 05/23/18 21:06 Lipitor - PO 10 mg HS REBEKAH Administration Cefuroxime Axetil 500 mg 10/08/18 22:00 05/24/18 09:42 Ceftin - PO 500 mg BID REBEKAH Administration Donepezil HCl 10 mg 05/17/18 22:00 05/23/18 21:06 Aricept - PO 10 mg HS REBEKAH Administration Escitalopram Oxalate 10 mg 05/17/18 22:00 05/23/18 21:06 Lexapro - PO 10 mg HS REBEKAH Administration Fentanyl 1 patch 05/19/18 10:50 05/22/18 10:38 Duragesic 12mcg Patch - TD 1 patch Q3D@1000 REBEKAH Administration Latanoprost 1 drop 05/17/18 22:00 05/23/18 21:58 Xalatan 0.005% Eye Drops - OU 1 drop HS REBEKAH Administration Levothyroxine Sodium 150 mcg 05/18/18 07:00 05/24/18 06:16 Synthroid - PO 150 mcg DAILY@0700 REBEKAH Administration Miscellaneous 1 each 05/17/18 18:57 05/22/18 10:54 Duragesic Patch Waste TD 1 each PRN PRN Administration WASTE Potassium Chloride 40 meq 05/24/18 12:00 K-Dur - PO 05/24/18 18:01 Q6H REBEKAH ASSESSMENT/PLAN 87 year-old female with a PMH significant for HLD, hypothyroidism, brain aneurysm (x 30+ years), 8cm AAA repair (2018, [facility]), T12 fracture (2018). Admitted for urinary tract infection. Now meets sepsis criteria. Urinary tract infection --05/17 UA: 134 WBCs --05/17 Urine culture: contaminated --treated with ceftriaxone 05/17-05/21, then transitioned to PO cefuroxime BID (4 doses given since 05/21) --has been afebrile with no leukocytosis until today-->T 96.7, WBC 13.0k, dropped BP overnight 85/49; meets severe sepsis criteria; lactic acid pending --re-culture --bolus 500cc NS --reestablish IV access --restart ceftriaxone --ID consult Diarrhea Abdominal pain --prior to admission had 11 soft, formed stools in 24 hour period; stool sent to [facility], reportedly negative --05/17 CTAP: diverticulosis without definite evidence of acute diverticulitis --now with liquid stools --C.diff: antigen+ antibody+ --start PO vanc --stool culture, occult stool pending Iron-deficiency anemia --Hgb 9.5-->8.7, MCV 79 --takes iron supp at home, restart Generalized fatigue --likely multifactorial: UTI, C. diff, chronic iron-deficiency anemia, decreased PO intake over past month-->7lb weight loss Hyperlipidemia --continue Lipitor Hypothyroidism --TSH ordered --continue levothyroxine at current dose AAA repair --recently underwent endovascular repair of 8 cm AAA --CTA shows the aneurysm sac has decreased in size to 5 cm and there is evidence of a small endoleak --seen and evaluated by Dr. Blankenship, no surgical intervention for now; needs f/u ultrasound in 3 months T12 vertebral fracture --secondary to mechanical fall at home on 03/30/18 --continue duragesic patch 12mcg Hypokalemia --repleted with PO FEN Fluids: NS 500cc bolus; then NS @75mL/hr Electrolytes: replete as indicated Nutrition: refusing to eat dysphagia pureed, switch to soft; meds crushed with applesauce; thin liquids; Ensure, Magic Cup, Ensure Pudding DVT prophylaxis: subq heparin Physical therapy Dispo: continues to require inpatient care. DNR/DNI. Arturo Haines cell [phone] Visit type - Emergency Visit Emergency Visit: Yes ED Registration Date: 05/17/18 Care time: The patient presented to the Emergency Department on the above date and was hospitalized for further evaluation of their emergent condition. - New Patient This patient is new to me today: Yes Date on this admission: 05/24/18 - Critical Care Critical Care patient: No
[2018-05-24] MEDS ORDERED: SODIUM CHLORIDE 500 ML IV STA (11:18)
[2018-05-24 12:18] LABS: MAGNESIUM 2.2 mg/dL (1.8-2.4); PHOSPHOROUS 3.6 mg/dL (2.5-4.9)
[2018-05-24] MEDS ORDERED: CEFTRIAXONE 1 GM in DEXTROSE 5%-WATER - 50 ML IVPB SCH (12:45)
[2018-05-24] MEDS ORDERED: DEXTROSE 5%-WATER - 50 ML IVPB ONE (14:02)
[2018-05-24] MEDS ORDERED: cefTRIAXone SODIUM 1 GM VIAL ONE (14:02)
[2018-05-24] MEDS: POTASSIUM CHLORIDE TABS 20 MEQ TABLET.ER (FP) PO SCH ×2 (14:05→17:35)
--- NOTE | 2018-05-24 16:52 | CON.ID ---
Consult Consult Specialty:: infectious disease Referred by:: hospitalist service Reason for Consultation:: sepsis - History of Present Illness Chief Complaint: diarrhea History of Present Illness: 87 yo lives alone with 24 [employer], admitted 05/17 with cough and weakness, treated with rocephin for 4 days then po ceftin for probable UTI, developed frequent loose stools yesterday, noted to have leukocytosis blood cultures sent started on ceftriaxone, cdiff + antigen and toxin no fevers s/p AAA repair last month with Dr Blankenship recent fall with t12 fracture - History Source History Provided By: Medical Record Limitations to Obtaining History: Poor Historian - Past Medical History Cardio/Vascular: Yes: Aneurysm (aaa with endovascular repair, brain aneurysm), HTN, Hyperlipdemia Endocrine: Yes: Hypothyroidism - Past Surgical History Additional Surgical History: endovascular AAA repair - Alcohol/Substance Use Hx Alcohol Use: No - Smoking History Smoking history: Former smoker Have you smoked in the past 12 months: No Aproximately how many cigarettes per day: 0 If you are a former smoker, when did you quit?: 0 - Social History Usual Living Arrangement: Alone ADL: Support Services (24 [employer]) History of Recent Travel: No Home Medications - Allergies Allergies/Adverse Reactions: Allergies Allergy/AdvReac Type Severity Reaction Status Date / Time No Known Allergies Allergy Verified 05/17/18 14:20 - Home Medications Home Medications: Ambulatory Orders Aspirin [ASA -] 81 mg PO DAILY 03/30/18 Cholecalciferol (Vitamin D3) [Vitamin D3] 1,000 unit PO BID 03/30/18 Cyanocobalamin [Vitamin B12 -] 1,000 mcg PO DAILY 03/30/18 Donepezil HCl [Aricept] 10 mg PO HS 03/30/18 Escitalopram Oxalate [Lexapro -] 10 mg PO HS 03/30/18 Levothyroxine [Synthroid -] 150 mcg PO DAILY 03/30/18 Simvastatin [Zocor -] 20 mg PO DAILY 03/30/18 Fentanyl 12 mcg TD Q72H 05/17/18 Latanoprost/Pf [Latanoprost 0.005% Eye Drop] 1 drop OU HS 05/17/18 Multivit-Min/Folic Acid/Vit K1 [Multi For Her 50 Plus Softgel] 1 each PO DAILY 05/17/18 Cefuroxime Axetil [Ceftin -] 500 mg PO Q12H #10 tablet 10/06/18 Family Disease History - Family Disease History Family History: Unable to Obtain Review of Systems - Review of Systems Constitutional: reports: No Symptoms Eyes: reports: No Symptoms HENT: reports: No Symptoms Neck: reports: No Symptoms Cardiovascular: reports: No Symptoms. denies: Chest Pain Respiratory: reports: No Symptoms. denies: Cough Gastrointestinal: reports: Diarrhea Physical Exam Vital Signs: Vital Signs Temperature 98.0 F 05/24/18 15:02 Pulse Rate 105 H 05/24/18 15:02 Respiratory Rate 16 05/24/18 15:02 Blood Pressure 126/68 05/24/18 15:02 O2 Sat by Pulse Oximetry (%) 94 L 05/24/18 09:00 Constitutional: Yes: No Distress, Thin Eyes: Yes: Conjunctiva Clear HENT: Yes: Atraumatic, Normocephalic Neck: Yes: Supple, Trachea Midline Cardiovascular: Yes: Regular Rate and Rhythm, Murmur Respiratory: Yes: Regular, CTA Bilaterally Gastrointestinal: Yes: Normal Bowel Sounds, Soft. No: Tenderness Extremities: Yes: WNL Edema: No Psychiatric: Yes: Alert Labs: CBC, BMP 05/21/18 06:40 05/23/18 16:00 Microbiology 05/23/18 22:11 Stool Clostridium difficile Antigen (VIRAJ) - Final 05/23/18 22:11 Stool Clostridium difficile Toxin Assay - Final 05/17/18 15:30 Urine - Urine Clean Catch Urine Culture - Final Contaminated: Please Repeat cdiff antigen and toxin positive Imaging - Results Chest X-ray: Report Reviewed, Image Reviewed Cat Scan: Report Reviewed Problem List - Problems (1) C. difficile colitis Code(s): A04.72 - ENTEROCOLITIS D/T CLOSTRIDIUM DIFFICILE, NOT SPCF RECUR (2) S/P AAA repair Code(s): Z98.890 - OTHER SPECIFIED POSTPROCEDURAL STATES; Z86.79 - PERSONAL HISTORY OF OTHER DISEASES OF THE CIRCULATORY SYSTEM (3) T12 compression fracture Code(s): S22.080A - WEDGE COMPRESSION FRACTURE OF T11-T12 VERTEBRA, INIT Assessment/Plan continue po vancomycin can d/c ceftriaxone gentle IVF pain from fracture is well controlled AAA repair f/u per vascular surgery
[2018-05-24] MEDS: SODIUM CHLORIDE 1,000 ML IV SCH (17:23)
[2018-05-24] MEDS: FERROUS SO4 325 MG TABLET (FP) PO SCH (17:36)
[2018-05-24] MEDS: VANCOMYCIN 250 MG/5 ML ORAL SOLUTION PO SCH (17:41)
[2018-05-24] MEDS: ESCITALOPRAM OXALATE 10 MG TABLET (FP) PO SCH (21:49)
[2018-05-24] MEDS: ATORVASTATIN CA 10 MG TABLET (FP) PO SCH (21:49)
[2018-05-24] MEDS: ACETAMINOPHEN 325 MG TABLET (FP) PO PRN (21:49)
[2018-05-24] MEDS: DONEPEZIL HCL 10 MG TABLET (FP) PO SCH (21:49)
[2018-05-24] MEDS: LATANOPROST 0.005% OPHTH SOLN 2.5ML BOTTLE OU SCH (22:15)
[2018-05-25] MEDS: VANCOMYCIN 250 MG/5 ML ORAL SOLUTION PO SCH ×5 (00:05→23:08)
[2018-05-25] MEDS ORDERED: PT OWN MED DRAWER 7, Y5N ONE ×2 (05:16→21:56)
[2018-05-25] MEDS: LEVOTHYROXINE NA 75 MCG TABLET (FP) PO SCH (06:00)
[2018-05-25 06:52] LABS: BASO % 0.8 % (0-2.0); EOS % 3.9 % (0-4.5); HEMATOCRIT 24.2 % (32.4-45.2); HEMOGLOBIN 7.7 GM/dL (10.7-15.3); MCH 25.2 pg (25.7-33.7); MEAN CELL VOLUME 78.9 fl (80-96); MEAN PLT VOLUME 7.8 fl (7.5-11.1); MONO % 9.1 % (3.8-10.2); NEUT % 65.2 % (42.8-82.8); PLATELET COUNT 273 K/MM3 (134-434); RBC 3.07 M/mm3 (3.60-5.2); RDW 16.3 % (11.6-15.6); WHITE BLOOD COUNT 7.4 K/mm3 (4.0-10.0)
[2018-05-25 07:15] LABS: ALBUMIN 2.3 g/dl (3.4-5.0); ALK PHOS 79 U/L (45-117); ANION GAP 2 MMOL/L (8-16); BILIRUBIN,TOTAL 0.2 mg/dL (0.2-1); BLOOD UREA NITROGEN 18 mg/dL (7-18); CALCIUM 8.2 mg/dL (8.5-10.1); CHLORIDE 108 mmol/L (98-107); CO2 31 mmol/L (21-32); CREATININE 0.2 mg/dL (0.55-1.3); GLUCOSE,RANDOM 83 mg/dL (74-106); MAGNESIUM 2.1 mg/dL (1.8-2.4); POTASSIUM 4.3 mmol/L (3.5-5.1); SGOT/AST 31 U/L (15-37); SGPT/ALT 28 U/L (13-61); SODIUM 140 mmol/L (136-145); TOT PROT 5.3 g/dl (6.4-8.2)
[2018-05-25] MEDS: FERROUS SO4 325 MG TABLET (FP) PO SCH ×2 (08:45→17:44)
[2018-05-25] MEDS: fentaNYL 12mcg/hr PATCH.TD72 TD SCH (10:45)
[2018-05-25] MEDS: ASPIRIN 81 MG CHEWABLE TABLETS PO SCH (10:45)
--- NOTE | 2018-05-25 10:49 | PN ---
Progress Note, [employer] DES[employer] - Note Progress Note: Selected Entries 05/23/18 05/23/18 05/23/18 10:28 15:13 23:37 Breakfast 100% Lunch 50% Supper 50% Temperature Pulse Rate 05/24/18 05/24/18 05/24/18 06:00 09:00 10:26 Breakfast 50% Lunch Supper Temperature 96.7 F L Pulse Rate 87 87 05/24/18 05/24/18 05/24/18 15:02 17:30 19:49 Breakfast Lunch 50% Supper 50% Temperature Pulse Rate 105 H 91 H 05/24/18 22:00 Breakfast Lunch Supper Temperature Pulse Rate 96 H Laboratory Tests 05/21/18 05/25/18 06:40 05:30 WBC 13.0 H 7.4 Diet order is soft/thin. Pt edentulous. Monitor PO intake/tolerance, indication for diet downgrade? Reviewed with nursing and [employer].
[2018-05-25] MEDS: SODIUM CHLORIDE 1,000 ML IV SCH (13:30)
--- NOTE | 2018-05-25 14:04 | PN ---
Progress Note (short form) - Note Progress Note: less diarrhea today 2 stools this am alert Vital Signs Period Temp Pulse Resp BP Sys/Martinez Pulse Ox Last 24 Hr 97.6 F-98.8 F 91-105 16-18 124-141/68-88 cor-rrr lungs clear abd soft,nt ext no edema CBC, BMP 05/25/18 05:30 05/25/18 05:30 Microbiology 05/24/18 12:25 Blood - Peripheral Venous Blood Culture - Preliminary NO GROWTH OBTAINED AFTER 24 HOURS, INCUBATION TO CONTINUE FOR 4 DAYS. 05/24/18 11:25 Blood - Peripheral Venous Blood Culture - Preliminary NO GROWTH OBTAINED AFTER 24 HOURS, INCUBATION TO CONTINUE FOR 4 DAYS. 05/24/18 11:09 Stool Salmonella/Shigella Culture - Preliminary NO ENTERIC PATHOGENS, 24 HOURS, ON PRIMARY PLATES 05/24/18 11:09 Stool Yersinia Culture - Preliminary NO ENTERIC PATHOGENS, 24 HOURS, ON PRIMARY PLATES 05/24/18 11:09 Stool Vibrio Culture - Final NO GROWTH OF VIBRIO SPECIES OBTAINED 05/24/18 11:09 Stool Escherichia coli 0157 Culture - Final NO GROWTH OF E COLI 0157 OBTAINED 05/23/18 22:11 Stool Clostridium difficile Antigen (VIRAJ) - Final 05/23/18 22:11 Stool Clostridium difficile Toxin Assay - Final a/p cdiff colitis improving plan 10 days oral vancomycin d/w daughters they aware of potential for relapse anemia t12 comp fracture please call back if needed Problem List - Problems (1) C. difficile colitis Code(s): A04.72 - ENTEROCOLITIS D/T CLOSTRIDIUM DIFFICILE, NOT SPCF RECUR (2) S/P AAA repair Code(s): Z98.890 - OTHER SPECIFIED POSTPROCEDURAL STATES; Z86.79 - PERSONAL HISTORY OF OTHER DISEASES OF THE CIRCULATORY SYSTEM (3) T12 compression fracture Code(s): S22.080A - WEDGE COMPRESSION FRACTURE OF T11-T12 VERTEBRA, INIT
--- NOTE | 2018-05-25 14:35 | PN ---
Physical Exam: SUBJECTIVE: Patient seen and examined at bedside. Daughters present. Still with liquid stool. OBJECTIVE: Vital Signs Period Temp Pulse Resp BP Sys/Martinez Pulse Ox Last 24 Hr 97.6 F-98.8 F 91-105 16-18 124-141/68-88 GENERAL: A&Ox1; interacting appropriately with daughters EYES: Left lid lag LUNGS: Breath sounds equal, clear to auscultation bilaterally, no wheezes, no crackles, no accessory muscle use. HEART: Regular rate and rhythm, S1, S2, +murmur ABDOMEN: Soft, nontender, nondistended EXTREMITIES: 2+ pulses, warm, well-perfused, no edema. SCDs NEUROLOGICAL: Cranial nerves II through XII grossly intact. Normal speech, gait not observed. PSYCH: Depressed affect. Laboratory Results - last 24 hr 05/25/18 05/25/18 05/25/18 05:30 05:30 05:30 WBC 7.4 RBC 3.07 L Hgb 7.7 L Hct 24.2 L MCV 78.9 L MCH 25.2 L MCHC 32.0 RDW 16.3 H Plt Count 273 MPV 7.8 Absolute Neuts (auto) 4.8 Neutrophils % 65.2 Lymphocytes % 21.0 D Monocytes % 9.1 Eosinophils % 3.9 D Basophils % 0.8 Nucleated RBC % 0 ESR 39 H Sodium 140 Potassium 4.3 Chloride 108 H Carbon Dioxide 31 Anion Gap 2 L BUN 18 Creatinine 0.2 L Creat Clearance w eGFR > 60 Random Glucose 83 Calcium 8.2 L Magnesium 2.1 Total Bilirubin 0.2 AST 31 ALT 28 Alkaline Phosphatase 79 C-Reactive Protein 5.7 H Total Protein 5.3 L Albumin 2.3 L Active Medications Generic Name Dose Route Start Last Admin Trade Name Freq PRN Reason Stop Dose Admin Acetaminophen 650 mg 05/18/18 10:52 05/24/18 21:49 Tylenol - PO 650 mg Q4H PRN Administration FEVER Artificial Tears 1 drop 05/21/18 18:46 05/23/18 21:06 Artificial Tears OU 1 drop Q6H PRN Administration DRY EYES Aspirin 81 mg 05/18/18 10:00 05/25/18 10:45 Asa - PO 81 mg DAILY REBEKAH Administration Atorvastatin Calcium 10 mg 05/18/18 22:00 05/24/18 21:49 Lipitor - PO 10 mg HS REBEKAH Administration Donepezil HCl 10 mg 05/17/18 22:00 05/24/18 21:49 Aricept - PO 10 mg HS REBEKAH Administration Escitalopram Oxalate 10 mg 05/17/18 22:00 05/24/18 21:49 Lexapro - PO 10 mg HS REBEKAH Administration Fentanyl 1 patch 05/19/18 10:50 05/25/18 10:45 Duragesic 12mcg Patch - TD 1 patch Q3D@1000 REBEKAH Administration Ferrous Sulfate 325 mg 05/24/18 17:30 05/25/18 08:45 Feosol - PO 325 mg BIDWM REBEKAH Administration Sodium Chloride 1,000 mls @ 75 mls/hr 05/24/18 12:45 05/24/18 17:23 Normal Saline - IV 75 mls/hr ASDIR REBEKAH Administration Latanoprost 1 drop 05/17/18 22:00 05/24/18 22:15 Xalatan 0.005% Eye Drops - OU 1 drop HS REBEKAH Administration Levothyroxine Sodium 150 mcg 05/18/18 07:00 05/25/18 06:00 Synthroid - PO 150 mcg DAILY@0700 REBEKAH Administration Miscellaneous 1 each 05/17/18 18:57 05/22/18 10:54 Duragesic Patch Waste TD 1 each PRN PRN Administration WASTE Vancomycin HCl 125 mg 05/24/18 18:00 05/25/18 13:00 Vancomycin Oral Solution PO 125 mg Q6HPO REBEKAH Administration Microbiology 05/24/18 12:25 Blood - Peripheral Venous Blood Culture - Preliminary NO GROWTH OBTAINED AFTER 24 HOURS, INCUBATION TO CONTINUE FOR 4 DAYS. 05/24/18 11:25 Blood - Peripheral Venous Blood Culture - Preliminary NO GROWTH OBTAINED AFTER 24 HOURS, INCUBATION TO CONTINUE FOR 4 DAYS. 05/24/18 11:09 Stool Salmonella/Shigella Culture - Preliminary NO ENTERIC PATHOGENS, 24 HOURS, ON PRIMARY PLATES 05/24/18 11:09 Stool Yersinia Culture - Preliminary NO ENTERIC PATHOGENS, 24 HOURS, ON PRIMARY PLATES 05/24/18 11:09 Stool Vibrio Culture - Final NO GROWTH OF VIBRIO SPECIES OBTAINED 05/24/18 11:09 Stool Escherichia coli 0157 Culture - Final NO GROWTH OF E COLI 0157 OBTAINED 05/23/18 22:11 Stool Clostridium difficile Antigen (VIRAJ) - Final 05/23/18 22:11 Stool Clostridium difficile Toxin Assay - Final 05/17/18 15:30 Urine - Urine Clean Catch Urine Culture - Final Contaminated: Please Repeat ASSESSMENT/PLAN 87 year-old female with a PMH significant for HLD, hypothyroidism, brain aneurysm (x 30+ years), 8cm AAA repair (2018, [facility]), T12 fracture (2018). Admitted for urinary tract infection. Now meets sepsis criteria. Urinary tract infection --05/17 UA: 134 WBCs --05/17 Urine culture: contaminated --treated with ceftriaxone 05/17-05/21, then transitioned to PO cefuroxime BID (4 doses given since 05/21) --seen and evaluated by ID, observe off antibiotics for UTI C. diff colitis --prior to admission had 11 soft, formed stools in 24 hour period; stool sent to [facility], reportedly negative --05/17 CTAP: diverticulosis without definite evidence of acute diverticulitis --05/23 C.diff: antigen+ antibody+; liquid stool persists --continue PO vanc (day #2) --stool culture, occult stool pending Iron-deficiency anemia r/o blood loss anemia --Hgb dropping 9.5-->8.7-->7.7 --occult stool re-ordered --daughter advises h/o peptic ulcer disease ~ 15 years ago, no bleeding episodes; never had colonoscopy; no h/o cancer --protonix --hold ASA --continue iron supplements --s/p AAA repair with endoleak; imaging shows endoleak getting smaller suggesting no active bleeding; if Hgb continues to drop will discuss with Dr. Blankenship --cbc, retic count, haptoglobin, LDH, iron studies pending Generalized fatigue --likely multifactorial: UTI, C. diff, chronic iron-deficiency anemia, decreased PO intake over past month-->7lb weight loss Hyperlipidemia --continue Lipitor Hypothyroidism --TSH ordered --continue levothyroxine at current dose AAA repair --recently underwent endovascular repair of 8 cm AAA --CTA shows the aneurysm sac has decreased in size to 5 cm and there is evidence of a small endoleak --seen and evaluated by Dr. Blankenship, no surgical intervention for now; needs f/u ultrasound in 3 months T12 vertebral fracture --secondary to mechanical fall at home on 03/30/18 --continue duragesic patch 12mcg Hypokalemia --repleted with PO FEN Fluids: NS 500cc bolus; then NS @75mL/hr Electrolytes: replete as indicated Nutrition: refusing to eat dysphagia pureed, switch to soft; meds crushed with applesauce; thin liquids; Ensure, Magic Cup, Ensure Pudding DVT prophylaxis: subq heparin Physical therapy Dispo: continues to require inpatient care. DNR/DNI. Arturo Haines cell [phone] Visit type - Emergency Visit Emergency Visit: Yes ED Registration Date: 05/17/18 Care time: The patient presented to the Emergency Department on the above date and was hospitalized for further evaluation of their emergent condition. - New Patient This patient is new to me today: Yes Date on this admission: 05/25/18 - Critical Care Critical Care patient: No
--- NOTE | 2018-05-25 16:43 | CON.GI ---
Consult Consult Specialty:: GI Referred by:: Rasheeda Ambrosio NP Reason for Consultation:: Anemia - History of Present Illness Chief Complaint: Anemia History of Present Illness: 87F admitted through [facility] ER 05/18/18 for evaluation of cough and weakness. Called to evaluate anemia. Daughters present at bedside. No overt bleeding reported. No melena reported. She is C. Diff toxin/antigen positive and is having multiple non-bloody, foul smelling diarrheal bowel movements. She was started on PO vancocin 125mg PO q 6 hours. She and her family believes that she may have had a colonoscopy several years ago. She denies abdominal pain. Hgb on admission was 9.5. Today Hgb 7.7. She is maintained on aspirin. - History Source History Provided By: Patient, Family Member, Medical Record - Past Medical History Cardio/Vascular: Yes: Aneurysm (aaa with endovascular repair, brain aneurysm), HTN, Hyperlipdemia Endocrine: Yes: Hypothyroidism - Past Surgical History Past Surgical History: Yes: AAA Repair (endovascular) Additional Surgical History: back surgery - Alcohol/Substance Use Hx Alcohol Use: No - Smoking History Smoking history: Former smoker Have you smoked in the past 12 months: No Aproximately how many cigarettes per day: 0 If you are a former smoker, when did you quit?: 0 - Social History Usual Living Arrangement: Alone ADL: Support Services (24 ADMINISTRATIVE PERSONAL ASSISTANT) Place of : [facility] History of Recent Travel: No Home Medications - Allergies Allergies/Adverse Reactions: Allergies Allergy/AdvReac Type Severity Reaction Status Date / Time No Known Allergies Allergy Verified 05/17/18 14:20 - Home Medications Home Medications: Ambulatory Orders Aspirin [ASA -] 81 mg PO DAILY 03/30/18 Cholecalciferol (Vitamin D3) [Vitamin D3] 1,000 unit PO BID 03/30/18 Cyanocobalamin [Vitamin B12 -] 1,000 mcg PO DAILY 03/30/18 Donepezil HCl [Aricept] 10 mg PO HS 03/30/18 Escitalopram Oxalate [Lexapro -] 10 mg PO HS 03/30/18 Levothyroxine [Synthroid -] 150 mcg PO DAILY 03/30/18 Simvastatin [Zocor -] 20 mg PO DAILY 03/30/18 Fentanyl 12 mcg TD Q72H 05/17/18 Latanoprost/Pf [Latanoprost 0.005% Eye Drop] 1 drop OU HS 05/17/18 Multivit-Min/Folic Acid/Vit K1 [Multi For Her 50 Plus Softgel] 1 each PO DAILY 05/17/18 Cefuroxime Axetil [Ceftin -] 500 mg PO Q12H #10 tablet 05/21/18 Family Disease History - Family Disease History Family Disease History: Other: Father (: 90's), Mother (: 80's "heart problem"), Brother, Sister (1, alive), Son (1, healthy), Daughter (2, healthy) Other Family History: No family history of colorectal cancer or other GI malignancy Review of Systems - Review of Systems Constitutional: denies: Chills Cardiovascular: denies: Chest Pain Respiratory: reports: Cough. denies: SOB Gastrointestinal: reports: Diarrhea. denies: Abdominal Pain, Melena, Rectal Bleeding Physical Exam-GI Vital Signs: Vital Signs Temperature 97.8 F 05/25/18 10:00 Pulse Rate 94 H 05/25/18 10:00 Respiratory Rate 18 05/25/18 10:00 Blood Pressure 133/68 05/25/18 10:00 O2 Sat by Pulse Oximetry (%) 94 L 05/24/18 09:00 Constitutional: Yes: Calm Eyes: No: Sclera Icterus Cardiovascular: Yes: Regular Rate and Rhythm, Murmur (2/6 diastolic murmur) Respiratory: Yes: Diminished (at bases bilaterally) Gastrointestinal Inspection: No: Distention, Scars ...Auscultate: Yes: Normoactive Bowel Sounds ...Palpate: Yes: Soft, Tenderness (tenderness to palpation left abdomen). No: Guarding, Tenderness, Rebound ...Percussion: No: Tympanitic ...Rectal Exam: Yes: Other (No external lesions, no masses, foul smelling green/ iron stained liquid stool, tracely guaiac positive.) Edema: No (No LE edema) Neurological: Yes: Alert Labs: CBC, BMP 05/25/18 05:30 05/25/18 05:30 Hepatic Panel Total Bilirubin 0.2 mg/dL (0.2-1) 05/25/18 05:30 AST 31 U/L (15-37) 05/25/18 05:30 ALT 28 U/L (13-61) 05/25/18 05:30 Alkaline Phosphatase 79 U/L (45-117) 05/25/18 05:30 Albumin 2.3 g/dl (3.4-5.0) L 05/25/18 05:30 Imaging - Results Cat Scan: Report Reviewed (2 x 1.5 x 0.5 cm hyperdense focus along post. lat wall opf bladder, s/p infrarenal AA repair with ? leak and a 4.3 x 2.7cm right adenexal cyst) Problem List - Problems (1) Anemia Assessment/Plan: No overt GI bleeding noted. ? if oozing of blood from colitis contributing Advise: Continue treatment of C. Diff colitis vancocin 125mg PO q 6 hrs Minimize PPI use as there is association with PPI use and C. Diff recurrence. Would stop aspirin, use protonix 40mg for 1 week for GI prophylaxis then discontinue. Minimize antibiotic use Consider evaluation for alternate causes of anemia No GI interventions planned at this time. Discussed with patient and family. Would reserve for active life threatening bleeding. Evaluation of adnexal finding per PMD Code(s): D64.9 - ANEMIA, UNSPECIFIED
[2018-05-25] MEDS: PANTOPRAZOLE 40 MG TABLET (FP) PO SCH (17:44)
[2018-05-25 19:21] LABS: HEMATOCRIT 26.6 % (32.4-45.2); HEMOGLOBIN 8.4 GM/dL (10.7-15.3); MCH 25.3 pg (25.7-33.7); MCHC 31.6 g/dl (32.0-36.0); MEAN CELL VOLUME 80.1 fl (80-96); MEAN PLT VOLUME 7.9 fl (7.5-11.1); PLATELET COUNT 311 K/MM3 (134-434); RBC 3.32 M/mm3 (3.60-5.2); RDW 16.5 % (11.6-15.6); WHITE BLOOD COUNT 8.8 K/mm3 (4.0-10.0)
[2018-05-25] MEDS: DONEPEZIL HCL 10 MG TABLET (FP) PO SCH (22:06)
[2018-05-25] MEDS: ATORVASTATIN CA 10 MG TABLET (FP) PO SCH (22:06)
[2018-05-25] MEDS: ESCITALOPRAM OXALATE 10 MG TABLET (FP) PO SCH (22:06)
[2018-05-25] MEDS: LATANOPROST 0.005% OPHTH SOLN 2.5ML BOTTLE OU SCH (22:59)
[2018-05-26] MEDS: VANCOMYCIN 250 MG/5 ML ORAL SOLUTION PO SCH ×4 (06:24→17:11)
[2018-05-26] MEDS: LEVOTHYROXINE NA 75 MCG TABLET (FP) PO SCH (06:24)
[2018-05-26 06:46] LABS: BASO % 0.9 % (0-2.0); EOS % 4.3 % (0-4.5); HEMATOCRIT 23.9 % (32.4-45.2); HEMOGLOBIN 7.7 GM/dL (10.7-15.3); LYMPH % 25.8 % (8-40); MCH 25.5 pg (25.7-33.7); MCHC 32.3 g/dl (32.0-36.0); MEAN CELL VOLUME 79.1 fl (80-96); MEAN PLT VOLUME 7.6 fl (7.5-11.1); MONO % 7.9 % (3.8-10.2); NEUT % 61.1 % (42.8-82.8); PLATELET COUNT 279 K/MM3 (134-434); RBC 3.03 M/mm3 (3.60-5.2); RDW 16.1 % (11.6-15.6); WHITE BLOOD COUNT 7.4 K/mm3 (4.0-10.0)
[2018-05-26 07:01] LABS: ALBUMIN 2.2 g/dl (3.4-5.0); ALK PHOS 77 U/L (45-117); ANION GAP 6 MMOL/L (8-16); BILIRUBIN,DIRECT 0.1 mg/dL (0.0-0.2); BILIRUBIN,TOTAL 0.1 mg/dL (0.2-1); BLOOD UREA NITROGEN 11 mg/dL (7-18); CALCIUM 8.4 mg/dL (8.5-10.1); CHLORIDE 108 mmol/L (98-107); CO2 29 mmol/L (21-32); CREATININE 0.2 mg/dL (0.55-1.3); GLUCOSE,RANDOM 74 mg/dL (74-106); MAGNESIUM 1.9 mg/dL (1.8-2.4); POTASSIUM 3.8 mmol/L (3.5-5.1); SGOT/AST 26 U/L (15-37); SGPT/ALT 28 U/L (13-61); SODIUM 143 mmol/L (136-145); TOT PROT 5.3 g/dl (6.4-8.2)
[2018-05-26] MEDS ORDERED: LEVOTHYROXINE NA 75 MCG TABLET (FP) PO SCH (09:13)
[2018-05-26] MEDS: PANTOPRAZOLE 40 MG TABLET (FP) PO SCH (10:41)
[2018-05-26] MEDS: FERROUS SO4 325 MG TABLET (FP) PO SCH ×2 (10:41→17:11)
--- NOTE | 2018-05-26 12:32 | PN ---
Physical Exam: SUBJECTIVE: Patient seen and examined. Feels a little more tired today. Mild headache. Three episodes diarrhea yesterday, two last night, none so far today. OBJECTIVE: Vital Signs Period Temp Pulse Resp BP Sys/Martinez Pulse Ox Last 24 Hr 98 F-98.8 F 81-87 17-18 130-156/74-87 95-95 GENERAL: A&Ox1; interacting appropriately with daughters EYES: Left lid lag LUNGS: Breath sounds equal, clear to auscultation bilaterally, no wheezes, no crackles, no accessory muscle use. HEART: Regular rate and rhythm, S1, S2, +murmur ABDOMEN: Soft, nontender, nondistended EXTREMITIES: 2+ pulses, warm, well-perfused, no edema. SCDs NEUROLOGICAL: Cranial nerves II through XII grossly intact. Normal speech, gait not observed. PSYCH: Depressed affect. 05/26/18 05/26/18 05:30 05:30 WBC 7.4 RBC 3.03 L Hgb 7.7 L Hct 23.9 L MCV 79.1 L MCH 25.5 L MCHC 32.3 RDW 16.1 H Plt Count 279 MPV 7.6 Absolute Neuts (auto) 4.5 Neutrophils % 61.1 Lymphocytes % 25.8 D Monocytes % 7.9 Eosinophils % 4.3 Basophils % 0.9 Nucleated RBC % 0 Retic Count Sodium 143 Potassium 3.8 Chloride 108 H Carbon Dioxide 29 Anion Gap 6 L BUN 11 Creatinine 0.2 L Creat Clearance w eGFR > 60 Random Glucose 74 Calcium 8.4 L Magnesium 1.9 Ferritin Total Bilirubin 0.1 L Direct Bilirubin 0.1 AST 26 ALT 28 Alkaline Phosphatase 77 LD Total Total Protein 5.3 L Albumin 2.2 L TSH 0.07 L Stool Occult Blood Blood Type Antibody Screen Active Medications Generic Name Dose Route Start Last Admin Trade Name Freq PRN Reason Stop Dose Admin Acetaminophen 650 mg 05/18/18 10:52 05/24/18 21:49 Tylenol - PO 650 mg Q4H PRN Administration FEVER Artificial Tears 1 drop 05/21/18 18:46 05/23/18 21:06 Artificial Tears OU 1 drop Q6H PRN Administration DRY EYES Atorvastatin Calcium 10 mg 05/18/18 22:00 05/25/18 22:06 Lipitor - PO 10 mg HS REBEKAH Administration Donepezil HCl 10 mg 05/17/18 22:00 10/10/18 22:06 Aricept - PO 10 mg HS REBEKAH Administration Escitalopram Oxalate 10 mg 05/17/18 22:00 05/25/18 22:06 Lexapro - PO 10 mg HS REBEKAH Administration Fentanyl 1 patch 05/19/18 10:50 05/25/18 10:45 Duragesic 12mcg Patch - TD 1 patch Q3D@1000 REBEKAH Administration Ferrous Sulfate 325 mg 05/24/18 17:30 05/26/18 10:41 Feosol - PO 325 mg BIDWM REBEKAH Administration Sodium Chloride 1,000 mls @ 75 mls/hr 05/24/18 12:45 05/25/18 13:30 Normal Saline - IV 75 mls/hr ASDIR REBEKAH Administration Latanoprost 1 drop 05/17/18 22:00 05/25/18 22:59 Xalatan 0.005% Eye Drops - OU 1 drop HS REBEKAH Administration Levothyroxine Sodium 112 mcg/ 137 mcg 05/27/18 07:00 Levothyroxine Sodium 25 mcg PO DAILY@0700 [facility] Miscellaneous 1 each 05/17/18 18:57 05/22/18 10:54 Duragesic Patch Waste TD 1 each PRN PRN Administration WASTE Pantoprazole Sodium 40 mg 05/25/18 15:00 05/26/18 10:41 Protonix - PO 05/30/18 10:01 40 mg DAILY REBEKAH Administration Vancomycin HCl 125 mg 05/24/18 18:00 05/26/18 10:41 Vancomycin Oral Solution PO 125 mg Q6HPO REBEKAH Administration ASSESSMENT/PLAN 87 year-old female with a PMH significant for HLD, hypothyroidism, brain aneurysm (x 30+ years), 8cm AAA repair (2018, Pattie), T12 fracture (2018). Admitted for urinary tract infection. Now with C.diff. Urinary tract infection --05/17 UA: 134 WBCs --05/17 Urine culture: contaminated --treated with ceftriaxone 05/17-05/21, then transitioned to PO cefuroxime BID (4 doses given since 05/21) --seen and evaluated by ID, observe off antibiotics for UTI C. diff colitis --prior to admission had 11 soft, formed stools in 24 hour period; stool sent to [facility], reportedly negative --10/2 CTAP: diverticulosis without definite evidence of acute diverticulitis --05/23 C.diff: antigen+ antibody+; liquid stool persists --continue PO vanc (day #3) --stool culture Iron-deficiency anemia r/o blood loss anemia --Hgb 7.7 (9.5 on admission) --occult stool + --retic count >2, LDH wnl, haptoglobin pending; iron studies pending --protonix x 5 more doses --hold ASA --continue iron supplements --GI following --s/p AAA repair with endoleak; imaging shows endoleak getting smaller suggesting no active bleeding; if Hgb continues to drop will discuss with Dr. Blankenship Generalized fatigue --likely multifactorial: UTI, C. diff, chronic iron-deficiency anemia, decreased PO intake over past month-->7lb weight loss Hyperlipidemia --continue Lipitor Hypothyroidism --TSH low, decrease levothyroxine 137mcg AAA repair --recently underwent endovascular repair of 8 cm AAA --CTA shows the aneurysm sac has decreased in size to 5 cm and there is evidence of a small endoleak --seen and evaluated by Dr. Blankenship, no surgical intervention for now; needs f/u ultrasound in 3 months T12 vertebral fracture --secondary to mechanical fall at home on 03/30/18 --continue duragesic patch 12mcg Hypokalemia --resolved FEN Fluids: PO intake adequate Electrolytes: replete as indicated Nutrition: chopped/soft, thin liquids; Ensure, Magic Cup, Ensure Pudding DVT prophylaxis: subq heparin Physical therapy Dispo: continues to require inpatient care. DNR/DNI. Arturo Haines cell [phone] Karlee Bennett cell [phone] Visit type - Emergency Visit Emergency Visit: Yes ED Registration Date: 05/17/18 Care time: The patient presented to the Emergency Department on the above date and was hospitalized for further evaluation of their emergent condition. - New Patient This patient is new to me today: No - Critical Care Critical Care patient: No
--- NOTE | 2018-05-26 12:34 | PN ---
Progress Note, FAMILY WORKER - Note Progress Note: Selected Entries 05/23/18 05/23/18 05/23/18 10:28 15:13 23:37 Breakfast 100% Lunch 50% Supper 50% Temperature Pulse Rate 05/24/18 05/24/18 05/24/18 06:00 09:00 10:26 Breakfast 50% Lunch Supper Temperature 96.7 F L Pulse Rate 87 87 05/24/18 05/24/18 05/24/18 15:02 17:30 19:49 Breakfast Lunch 50% Supper 50% Temperature Pulse Rate 105 H 91 H 05/24/18 22:00 Breakfast Lunch Supper Temperature Pulse Rate 96 H Laboratory Tests 05/21/18 05/25/18 06:40 05:30 WBC 13.0 H 7.4 Selected Entries 05/26/18 05/26/18 06:00 11:32 Breakfast 25% Temperature 98 F Laboratory Tests 05/26/18 05:30 WBC 7.4 Diet order is soft/thin. Pt edentulous. Reviewed with PNP,nursing,COMPLIANCE AND CONTROL ANALYST,family. Weight loss Will downgrade to chopped diet with 1-2 soft items. Please add banana, fish, oatmeal bid,eggs,chicken salad,chopped meat w gravy. Ensure,Magic cup, RD f/u
[2018-05-26] MEDS: SODIUM CHLORIDE 1,000 ML IV SCH (15:10)
--- NOTE | 2018-05-26 19:23 | PN ---
GI Progress Note Subjective: No overt bleeding reported Diarrhea improved: 1-2 BM's today per nursing Patient denies any abdominal pain - Objective Vital Signs: Vital Signs Temperature 98.4 F 05/26/18 14:10 Pulse Rate 85 05/26/18 14:10 Respiratory Rate 18 05/26/18 14:10 Blood Pressure 132/61 05/26/18 14:10 O2 Sat by Pulse Oximetry (%) 95 05/26/18 09:00 Constitutional: Calm Eyes: No: Sclera Icterus Cardiovascular: Yes: Regular Rate and Rhythm Respiratory: Yes: Diminished (at bases bilaterally) Gastrointestinal Inspection: No: Distention ...Auscultate: Yes: Normoactive Bowel Sounds ...Palpate: No: Tenderness ...Percussion: No: Tympanitic Edema: No (no LE edema) Neurological: Yes: Alert Labs: CBC, BMP 05/26/18 05:30 05/26/18 05:30 Hepatic Panel Total Bilirubin 0.1 mg/dL (0.2-1) L 05/26/18 05:30 Direct Bilirubin 0.1 mg/dL (0.0-0.2) 05/26/18 05:30 AST 26 U/L (15-37) 05/26/18 05:30 ALT 28 U/L (13-61) 05/26/18 05:30 Alkaline Phosphatase 77 U/L (45-117) 05/26/18 05:30 Albumin 2.2 g/dl (3.4-5.0) L 05/26/18 05:30 Problem List - Problems (1) Anemia Assessment/Plan: No overt bleeding Heme evaluation Code(s): D64.9 - ANEMIA, UNSPECIFIED (2) C. difficile colitis Assessment/Plan: Improved PO Vanco 125mg PO Q 6 hours D/C protonix in 1 week Code(s): A04.72 - ENTEROCOLITIS D/T CLOSTRIDIUM DIFFICILE, NOT SPCF RECUR
[2018-05-26] MEDS: ATORVASTATIN CA 10 MG TABLET (FP) PO SCH (21:12)
[2018-05-26] MEDS: DONEPEZIL HCL 10 MG TABLET (FP) PO SCH (21:12)
[2018-05-26] MEDS: ESCITALOPRAM OXALATE 10 MG TABLET (FP) PO SCH (21:12)
[2018-05-27] MEDS: VANCOMYCIN 250 MG/5 ML ORAL SOLUTION PO SCH ×5 (00:15→23:30)
[2018-05-27] MEDS: LATANOPROST 0.005% OPHTH SOLN 2.5ML BOTTLE OU SCH ×2 (00:15→21:35)
[2018-05-27] MEDS ORDERED: LEVOTHYROXINE NA 112 MCG TABLET (FP) ONE (05:57)
[2018-05-27] MEDS ORDERED: LEVOTHYROXINE NA 25 MCG TABLET (FP) ONE (05:57)
[2018-05-27 06:05] LABS: SERUM IRON SATURATION 10 % (15-55); TOTAL IRON BINDING CAPACITY 237 ug/dL (250-450); UIBC 214 ug/dL (118-369)
[2018-05-27] MEDS: LEVOTHYROXINE 112 MCG, LEVOTHYROXINE 25 MCG PO SCH (06:32)
[2018-05-27 06:42] LABS: BASO % 0.8 % (0-2.0); EOS % 0.8 % (0-4.5); HEMATOCRIT 25.4 % (32.4-45.2); HEMOGLOBIN 8.1 GM/dL (10.7-15.3); LYMPH % 12.5 % (8-40); MCH 24.8 pg (25.7-33.7); MCHC 31.7 g/dl (32.0-36.0); MEAN CELL VOLUME 78.1 fl (80-96); MEAN PLT VOLUME 7.5 fl (7.5-11.1); MONO % 5.4 % (3.8-10.2); NEUT % 80.5 % (42.8-82.8); PLATELET COUNT 322 K/MM3 (134-434); RBC 3.25 M/mm3 (3.60-5.2); RDW 16.5 % (11.6-15.6); WHITE BLOOD COUNT 12.3 K/mm3 (4.0-10.0)
[2018-05-27 07:07] LABS: ALBUMIN 2.5 g/dl (3.4-5.0); ALK PHOS 81 U/L (45-117); ANION GAP 7 MMOL/L (8-16); BILIRUBIN,TOTAL 0.2 mg/dL (0.2-1); BLOOD UREA NITROGEN 7 mg/dL (7-18); CALCIUM 8.6 mg/dL (8.5-10.1); CHLORIDE 104 mmol/L (98-107); CO2 30 mmol/L (21-32); CREATININE 0.2 mg/dL (0.55-1.3); GLUCOSE,RANDOM 88 mg/dL (74-106); MAGNESIUM 1.9 mg/dL (1.8-2.4); POTASSIUM 3.4 mmol/L (3.5-5.1); SGOT/AST 18 U/L (15-37); SGPT/ALT 25 U/L (13-61); SODIUM 141 mmol/L (136-145); TOT PROT 5.6 g/dl (6.4-8.2)
[2018-05-27] MEDS ORDERED: PT OWN MED DRAWER 7, Y5N ONE (09:35)
[2018-05-27] MEDS: PANTOPRAZOLE 40 MG TABLET (FP) PO SCH (10:12)
[2018-05-27] MEDS: FERROUS SO4 325 MG TABLET (FP) PO SCH ×3 (10:13→17:19)
--- NOTE | 2018-05-27 10:13 | PN ---
Physical Exam: SUBJECTIVE: Patient seen and examined at bedside. Brighter appearance, alert. Looking forward to her daughters coming to visit. OBJECTIVE: Vital Signs Period Temp Pulse Resp BP Sys/Martinez Pulse Ox Last 24 Hr 97.7 F-98.4 F 77-90 18-20 132-149/61-92 92 GENERAL: A&Ox1 EYES: Left lid lag LUNGS: Breath sounds equal, clear to auscultation bilaterally, no wheezes, no crackles, no accessory muscle use. HEART: Regular rate and rhythm, S1, S2, +murmur ABDOMEN: Soft, nontender, nondistended EXTREMITIES: 2+ pulses, warm, well-perfused, no edema. SCDs NEUROLOGICAL: Cranial nerves II through XII grossly intact. Normal speech, gait not observed. PSYCH: Brighter. Laboratory Results - last 24 hr 05/25/18 05/25/18 05/27/18 18:45 18:45 05:30 WBC 12.3 H RBC 3.25 L Hgb 8.1 L Hct 25.4 L MCV 78.1 L MCH 24.8 L MCHC 31.7 L RDW 16.5 H Plt Count 322 MPV 7.5 Absolute Neuts (auto) 9.9 H Neutrophils % 80.5 D Lymphocytes % 12.5 D Monocytes % 5.4 Eosinophils % 0.8 D Basophils % 0.8 Nucleated RBC % 0 Haptoglobin 276 H Sodium Potassium Chloride Carbon Dioxide Anion Gap BUN Creatinine Creat Clearance w eGFR Random Glucose Calcium Magnesium Iron 23 L TIBC 237 L Iron Saturation 10 L Total Bilirubin AST ALT Alkaline Phosphatase Total Protein Albumin 05/27/18 05:30 WBC RBC Hgb Hct MCV MCH MCHC RDW Plt Count MPV Absolute Neuts (auto) Neutrophils % Lymphocytes % Monocytes % Eosinophils % Basophils % Nucleated RBC % Haptoglobin Sodium 141 Potassium 3.4 L Chloride 104 Carbon Dioxide 30 Anion Gap 7 L BUN 7 Creatinine 0.2 L Creat Clearance w eGFR > 60 Random Glucose 88 Calcium 8.6 Magnesium 1.9 Iron TIBC Iron Saturation Total Bilirubin 0.2 AST 18 ALT 25 Alkaline Phosphatase 81 Total Protein 5.6 L Albumin 2.5 L Active Medications Generic Name Dose Route Start Last Admin Trade Name Freq PRN Reason Stop Dose Admin Acetaminophen 650 mg 05/18/18 10:52 05/24/18 21:49 Tylenol - PO 650 mg Q4H PRN Administration FEVER Artificial Tears 1 drop 05/21/18 18:46 05/23/18 21:06 Artificial Tears OU 1 drop Q6H PRN Administration DRY EYES Atorvastatin Calcium 10 mg 05/18/18 22:00 05/26/18 21:12 Lipitor - PO 10 mg HS REBEKAH Administration Donepezil HCl 10 mg 05/17/18 22:00 05/26/18 21:12 Aricept - PO 10 mg HS REBEKAH Administration Escitalopram Oxalate 10 mg 05/17/18 22:00 05/26/18 21:12 Lexapro - PO 10 mg HS REBEKAH Administration Fentanyl 1 patch 05/19/18 10:50 05/25/18 10:45 Duragesic 12mcg Patch - TD 1 patch Q3D@1000 REBEKAH Administration Ferrous Sulfate 325 mg 05/24/18 17:30 05/26/18 17:11 Feosol - PO 325 mg BIDWM REBEKAH Administration Latanoprost 1 drop 05/17/18 22:00 05/27/18 00:15 Xalatan 0.005% Eye Drops - OU 1 drop HS REBEKAH Administration Levothyroxine Sodium 112 mcg/ 137 mcg 05/27/18 07:00 05/27/18 06:32 Levothyroxine Sodium 25 mcg PO 137 mcg DAILY@0700 REBEKAH Administration Miscellaneous 1 each 05/17/18 18:57 05/22/18 10:54 Duragesic Patch Waste TD 1 each PRN PRN Administration WASTE Pantoprazole Sodium 40 mg 05/25/18 15:00 05/26/18 10:41 Protonix - PO 05/30/18 10:01 40 mg DAILY REBEKAH Administration Vancomycin HCl 125 mg 05/24/18 18:00 05/27/18 06:33 Vancomycin Oral Solution PO 125 mg Q6HPO REBEKAH Administration ASSESSMENT/PLAN 87 year-old female with a PMH significant for HLD, hypothyroidism, brain aneurysm (x 30+ years), 8cm AAA repair (2018, Pattie), T12 fracture (2018). Admitted for urinary tract infection. Now with C.diff. Urinary tract infection --05/17 UA: 134 WBCs --05/17 Urine culture: contaminated --treated with ceftriaxone 05/17-05/21, then transitioned to PO cefuroxime BID (4 doses given since 05/21) --seen and evaluated by ID, continue to observe off antibiotics for UTI C. diff colitis --05/17 CTAP: diverticulosis without definite evidence of acute diverticulitis --05/23 C.diff: antigen+ antibody+; stool with some consistency today --bump in WBC today, afebrile --continue PO vanc (day #4) --stool cultures negative Iron-deficiency anemia r/o blood loss anemia --Hgb 8.1, stable, occult stool +, no overt bleeding --protonix x 4 more doses --hold ASA --continue iron supplements --GI following --s/p AAA repair with endoleak; imaging shows endoleak getting smaller suggesting no active bleeding; if Hgb continues to drop will discuss with Dr. Blankenship Generalized fatigue --likely multifactorial: UTI, C. diff, chronic iron-deficiency anemia, decreased PO intake over past month-->7lb weight loss Hyperlipidemia --continue Lipitor Hypothyroidism --TSH low, decreased levothyroxine 137mcg AAA repair --recently underwent endovascular repair of 8 cm AAA --CTA shows the aneurysm sac has decreased in size to 5 cm and there is evidence of a small endoleak --seen and evaluated by Dr. Blankenship, no surgical intervention for now; needs f/u ultrasound in 3 months T12 vertebral fracture --secondary to mechanical fall at home on 03/30/18 --continue duragesic patch 12mcg Hypokalemia --repleted FEN Fluids: PO intake adequate Electrolytes: replete as indicated Nutrition: chopped/soft, thin liquids; Ensure, Magic Cup, Ensure Pudding DVT prophylaxis: subq heparin Physical therapy Dispo: continues to require inpatient care. DNR/DNI. Arturo Haines cell [phone] Karlee Bennett cell [phone] Visit type - Emergency Visit Emergency Visit: Yes ED Registration Date: 05/17/18 Care time: The patient presented to the Emergency Department on the above date and was hospitalized for further evaluation of their emergent condition. - New Patient This patient is new to me today: No - Critical Care Critical Care patient: No
--- NOTE | 2018-05-27 11:55 | PN ---
Progress Note, BRICK CATCHER - Note Progress Note: "Picky eater" Selected Entries 05/26/18 05/26/18 05/26/18 06:00 10:00 11:32 Breakfast 25% Lunch Supper Temperature 98 F 98 F 05/26/18 05/26/18 05/26/18 14:10 15:24 17:00 Breakfast Lunch 25% Supper Temperature 98.4 F 97.7 F 05/26/18 05/27/18 05/27/18 22:00 06:00 10:00 Breakfast Lunch Supper 25% Temperature 97.8 F 98.0 F 97.8 F Laboratory Tests 05/26/18 05/27/18 05:30 05:[address] re: pt's dietary requests.
[2018-05-27] MEDS: POTASSIUM CHLORIDE TABS 20 MEQ TABLET.ER (FP) PO SCH ×2 (17:19→23:30)
[2018-05-27] MEDS: ATORVASTATIN CA 10 MG TABLET (FP) PO SCH (21:34)
[2018-05-27] MEDS: ESCITALOPRAM OXALATE 10 MG TABLET (FP) PO SCH (21:34)
[2018-05-27] MEDS: DONEPEZIL HCL 10 MG TABLET (FP) PO SCH (21:34)
[2018-05-28] MEDS ORDERED: LEVOTHYROXINE NA 112 MCG TABLET (FP) ONE (06:04)
[2018-05-28] MEDS ORDERED: LEVOTHYROXINE NA 25 MCG TABLET (FP) ONE (06:04)
[2018-05-28] MEDS: LEVOTHYROXINE 112 MCG, LEVOTHYROXINE 25 MCG PO SCH (06:51)
[2018-05-28] MEDS: VANCOMYCIN 250 MG/5 ML ORAL SOLUTION PO SCH ×3 (06:51→17:27)
--- NOTE | 2018-05-28 08:27 | PN ---
Progress Note, Physician History of Present Illness: Covering for Dr. Rush feeling ok , denies abd pain / nausea/ vomiting , still with loose stool - Current Medication List Current Medications: Active Medications Acetaminophen (Tylenol -) 650 mg PO Q4H PRN PRN Reason: FEVER Last Admin: 05/24/18 21:49 Dose: 650 mg Artificial Tears (Artificial Tears) 1 drop OU Q6H PRN PRN Reason: DRY EYES Last Admin: 05/23/18 21:06 Dose: 1 drop Atorvastatin Calcium (Lipitor -) 10 mg PO HS [facility] Last Admin: 05/27/18 21:34 Dose: 10 mg Donepezil HCl (Aricept -) 10 mg PO HS [facility] Last Admin: 05/27/18 21:34 Dose: 10 mg Escitalopram Oxalate (Lexapro -) 10 mg PO HS [facility] Last Admin: 05/27/18 21:34 Dose: 10 mg Fentanyl (Duragesic 12mcg Patch -) 1 patch TD Q3D@1000 [facility] Last Admin: 05/25/18 10:45 Dose: 1 patch Ferrous Sulfate (Feosol -) 325 mg PO BIDWM [facility] Last Admin: 05/27/18 17:19 Dose: 325 mg Latanoprost (Xalatan 0.005% Eye Drops -) 1 drop OU [facility] Last Admin: 05/27/18 21:35 Dose: 1 drop Levothyroxine Sodium 112 mcg/ (Levothyroxine Sodium 25 mcg) 137 mcg PO DAILY@ 0700 [facility] Last Admin: 05/28/18 06:51 Dose: 137 mcg Miscellaneous (Duragesic Patch Waste) 1 each TD PRN PRN PRN Reason: WASTE Last Admin: 05/22/18 10:54 Dose: 1 each Pantoprazole Sodium (Protonix -) 40 mg PO DAILY [facility] Stop: 05/30/18 10:01 Last Admin: 05/27/18 10:12 Dose: 40 mg Vancomycin HCl (Vancomycin Oral Solution) 125 mg PO Q6HPO [facility] Last Admin: 05/28/18 06:51 Dose: 125 mg - Objective Vital Signs: Vital Signs Temperature 97.2 F L 05/28/18 05:45 Pulse Rate 88 05/28/18 05:45 Respiratory Rate 20 05/28/18 08:09 Blood Pressure 136/87 05/28/18 05:45 O2 Sat by Pulse Oximetry (%) 95 05/28/18 08:09 Constitutional: Yes: No Distress, Calm Eyes: Yes: WNL HENT: Yes: WNL Neck: Yes: WNL Cardiovascular: Yes: WNL Respiratory: Yes: WNL, Regular, CTA Bilaterally Gastrointestinal: Yes: WNL, Normal Bowel Sounds, Soft Musculoskeletal: Yes: WNL Extremities: Yes: WNL Edema: No Labs: CBC, BMP 05/27/18 05:30 05/27/18 05:30 Problem List - Problems (1) Anemia Code(s): D64.9 - ANEMIA, UNSPECIFIED (2) C. difficile colitis Assessment/Plan: c/w Vanco PO Q6 for c.diff colitis low residue lactose free diet as tolerated monitor abdominal exam am cbc / chemistry anemia work - up as per primary medical team Code(s): A04.72 - ENTEROCOLITIS D/T CLOSTRIDIUM DIFFICILE, NOT SPCF RECUR
[2018-05-28] MEDS: FERROUS SO4 325 MG TABLET (FP) PO SCH ×2 (09:15→17:27)
[2018-05-28] MEDS: fentaNYL 12mcg/hr PATCH.TD72 TD SCH (09:15)
[2018-05-28] MEDS: PANTOPRAZOLE 40 MG TABLET (FP) PO SCH (09:16)
[2018-05-28 19:20] LABS: BASO % 0.8 % (0-2.0); EOS % 1.8 % (0-4.5); HEMATOCRIT 27.4 % (32.4-45.2); LYMPH % 19.3 % (8-40); MCH 25.8 pg (25.7-33.7); MCHC 32.9 g/dl (32.0-36.0); MEAN CELL VOLUME 78.6 fl (80-96); MEAN PLT VOLUME 7.4 fl (7.5-11.1); MONO % 7.5 % (3.8-10.2); NEUT % 70.6 % (42.8-82.8); PLATELET COUNT 431 K/MM3 (134-434); RBC 3.48 M/mm3 (3.60-5.2); RDW 16.6 % (11.6-15.6); WHITE BLOOD COUNT 11.3 K/mm3 (4.0-10.0)
[2018-05-28 19:49] LABS: ANION GAP 6 MMOL/L (8-16); BLOOD UREA NITROGEN 11 mg/dL (7-18); CHLORIDE 101 mmol/L (98-107); CO2 30 mmol/L (21-32); CREATININE 0.3 mg/dL (0.55-1.3); GLUCOSE,RANDOM 108 mg/dL (74-106); POTASSIUM 4.2 mmol/L (3.5-5.1); SODIUM 137 mmol/L (136-145)
--- NOTE | 2018-05-28 21:31 | PN ---
Physical Exam: SUBJECTIVE: Patient seen and examined at bedside. Interacting with chief nursing executive. Looking forward to going home. OBJECTIVE: Vital Signs Period Temp Pulse Resp BP Sys/Martinez Pulse Ox Last 24 Hr 97.2 F-97.8 F 79-104 18-20 124-148/78-95 95 GENERAL: A&Ox1 EYES: Left lid lag LUNGS: Breath sounds equal, clear to auscultation bilaterally, no wheezes, no crackles, no accessory muscle use. HEART: Regular rate and rhythm, S1, S2, +murmur ABDOMEN: Soft, nontender, nondistended EXTREMITIES: 2+ pulses, warm, well-perfused, no edema. SCDs NEUROLOGICAL: Cranial nerves II through XII grossly intact. Normal speech, gait not observed. Laboratory Results - last 24 hr 05/28/18 05/28/18 18:00 18:00 WBC 11.3 H RBC 3.48 L Hgb 9.0 L Hct 27.4 L MCV 78.6 L MCH 25.8 MCHC 32.9 RDW 16.6 H Plt Count 431 D MPV 7.4 L Absolute Neuts (auto) 7.9 Neutrophils % 70.6 Lymphocytes % 19.3 D Monocytes % 7.5 Eosinophils % 1.8 D Basophils % 0.8 Nucleated RBC % 0 Sodium 137 Potassium 4.2 Chloride 101 Carbon Dioxide 30 Anion Gap 6 L BUN 11 Creatinine 0.3 L Creat Clearance w eGFR > 60 Random Glucose 108 H Calcium 9.0 Magnesium 2.0 Active Medications Generic Name Dose Route Start Last Admin Trade Name Freq PRN Reason Stop Dose Admin Acetaminophen 650 mg 05/18/18 10:52 05/24/18 21:49 Tylenol - PO 650 mg Q4H PRN Administration FEVER Artificial Tears 1 drop 05/21/18 18:46 05/23/18 21:06 Artificial Tears OU 1 drop Q6H PRN Administration DRY EYES Atorvastatin Calcium 10 mg 05/18/18 22:00 05/27/18 21:34 Lipitor - PO 10 mg HS REBEKAH Administration Donepezil HCl 10 mg 05/17/18 22:00 05/27/18 21:34 Aricept - PO 10 mg HS REBEKAH Administration Escitalopram Oxalate 10 mg 05/17/18 22:00 05/27/18 21:34 Lexapro - PO 10 mg HS REBEKAH Administration Fentanyl 1 patch 05/19/18 10:50 05/28/18 09:15 Duragesic 12mcg Patch - TD 1 patch Q3D@1000 REBEKAH Administration Ferrous Sulfate 325 mg 05/24/18 17:30 05/28/18 17:27 Feosol - PO 325 mg BIDWM REBEKAH Administration Latanoprost 1 drop 05/17/18 22:00 05/27/18 21:35 Xalatan 0.005% Eye Drops - OU 1 drop HS REBEKAH Administration Levothyroxine Sodium 112 mcg/ 137 mcg 05/27/18 07:00 05/28/18 06:51 Levothyroxine Sodium 25 mcg PO 137 mcg DAILY@0700 REBEKAH Administration Miscellaneous 1 each 05/17/18 18:57 05/22/18 10:54 Duragesic Patch Waste TD 1 each PRN PRN Administration WASTE Pantoprazole Sodium 40 mg 05/25/18 15:00 05/28/18 09:16 Protonix - PO 05/30/18 10:01 40 mg DAILY REBEKAH Administration Vancomycin HCl 125 mg 05/24/18 18:00 05/28/18 17:27 Vancomycin Oral Solution PO 125 mg Q6HPO REBEKAH Administration ASSESSMENT/PLAN 87 year-old female with a PMH significant for HLD, hypothyroidism, brain aneurysm (x 30+ years), 8cm AAA repair (2018, Pattie), T12 fracture (2018). Admitted for urinary tract infection. Now with C.diff. Urinary tract infection --05/17 UA: 134 WBCs --05/17 Urine culture: contaminated --treated with ceftriaxone 05/17-05/21, then transitioned to PO cefuroxime BID (4 doses given since 05/21) --seen and evaluated by ID, continue to observe off antibiotics for UTI C. diff colitis --05/17 CTAP: diverticulosis without definite evidence of acute diverticulitis --05/23 C.diff: antigen+ antibody+; stool with consistency --mild leukocytosis, afebrile --continue PO vanc (day #5) --stool cultures negative Iron-deficiency anemia r/o blood loss anemia --Hgb 9.0, stable, occult stool +, no overt bleeding --protonix x 3 more doses --hold ASA --continue iron supplements --GI following --s/p AAA repair with endoleak; imaging shows endoleak getting smaller suggesting no active bleeding; if Hgb continues to drop will discuss with Dr. Blankenship Generalized fatigue --likely multifactorial: UTI, C. diff, chronic iron-deficiency anemia, decreased PO intake over past month-->7lb weight loss Hyperlipidemia --continue Lipitor Hypothyroidism --TSH low, decreased levothyroxine 137mcg AAA repair --recently underwent endovascular repair of 8 cm AAA --CTA shows the aneurysm sac has decreased in size to 5 cm and there is evidence of a small endoleak --seen and evaluated by Dr. Blankenship, no surgical intervention for now; needs f/u ultrasound in 3 months T12 vertebral fracture --secondary to mechanical fall at home on 03/30/18 --continue duragesic patch 12mcg FEN Fluids: PO intake adequate Electrolytes: replete as indicated Nutrition: chopped/soft, thin liquids; Ensure, Magic Cup, Ensure Pudding DVT prophylaxis: subq heparin Physical therapy Dispo: Plan is to discharge to home tomorrow. [address] DNR/DNI[address] Arturo Haines cell [phone] Karlee Bennett cell [phone] Visit type - Emergency Visit Emergency Visit: Yes ED Registration Date: 05/17/18 Care time: The patient presented to the Emergency Department on the above date and was hospitalized for further evaluation of their emergent condition. - New Patient This patient is new to me today: No - Critical Care Critical Care patient: No
[2018-05-28] MEDS: ATORVASTATIN CA 10 MG TABLET (FP) PO SCH (22:23)
[2018-05-28] MEDS: DONEPEZIL HCL 10 MG TABLET (FP) PO SCH (22:24)
[2018-05-28] MEDS: ESCITALOPRAM OXALATE 10 MG TABLET (FP) PO SCH (22:24)
[2018-05-28] MEDS: LATANOPROST 0.005% OPHTH SOLN 2.5ML BOTTLE OU SCH (22:27)
[2018-05-28] MEDS: ACETAMINOPHEN 325 MG TABLET (FP) PO PRN (22:59)
[2018-05-29] MEDS: VANCOMYCIN 250 MG/5 ML ORAL SOLUTION PO SCH ×5 (01:05→23:40)
[2018-05-29] MEDS ORDERED: LEVOTHYROXINE NA 25 MCG TABLET (FP) ONE (05:25)
[2018-05-29] MEDS ORDERED: LEVOTHYROXINE NA 112 MCG TABLET (FP) ONE (05:26)
[2018-05-29] MEDS: LEVOTHYROXINE 112 MCG, LEVOTHYROXINE 25 MCG PO SCH (07:01)
[2018-05-29] MEDS: FERROUS SO4 325 MG TABLET (FP) PO SCH ×2 (09:48→17:05)
[2018-05-29] MEDS: PANTOPRAZOLE 40 MG TABLET (FP) PO SCH (09:48)
--- NOTE | 2018-05-29 14:12 | DS ---
Physical Exam: SUBJECTIVE: Patient seen and examined OBJECTIVE: Vital Signs Period Temp Pulse Resp BP Sys/Martinez Pulse Ox Last 24 Hr 97.6 F-97.9 F 90-104 18-20 124-148/78-96 96-96 PHYSICAL EXAM GENERAL: A&Ox1 EYES: Left lid lag LUNGS: Breath sounds equal, clear to auscultation bilaterally, no wheezes, no crackles, no accessory muscle use. HEART: Regular rate and rhythm, S1, S2, +murmur ABDOMEN: Soft, nontender, nondistended EXTREMITIES: 2+ pulses, warm, well-perfused, no edema. SCDs NEUROLOGICAL: Cranial nerves II through XII grossly intact. Normal speech, gait not observed. LABS Laboratory Results - last 24 hr 05/28/18 05/28/18 18:00 18:00 WBC 11.3 H RBC 3.48 L Hgb 9.0 L Hct 27.4 L MCV 78.6 L MCH 25.8 MCHC 32.9 RDW 16.6 H Plt Count 431 D MPV 7.4 L Absolute Neuts (auto) 7.9 Neutrophils % 70.6 Lymphocytes % 19.3 D Monocytes % 7.5 Eosinophils % 1.8 D Basophils % 0.8 Nucleated RBC % 0 Sodium 137 Potassium 4.2 Chloride 101 Carbon Dioxide 30 Anion Gap 6 L BUN 11 Creatinine 0.3 L Creat Clearance w eGFR > 60 Random Glucose 108 H Calcium 9.0 Magnesium 2.0 HOSPITAL COURSE: Date of Admission:05/17/18 Date of Discharge: 05/29/18 87 year-old female with a PMH significant for HLD, hypothyroidism, brain aneurysm (x 30+ years), 8cm AAA repair (2018, Pattie), T12 fracture (2018). Admitted for urinary tract infection. Now with C.diff. Urinary tract infection --05/17 UA: 134 WBCs --05/17 Urine culture: contaminated --treated with ceftriaxone 05/17-05/21, then transitioned to PO cefuroxime BID (4 doses given since 05/21) --seen and evaluated by ID, continue to observe off antibiotics for UTI C. diff colitis --05/17 CTAP: diverticulosis without definite evidence of acute diverticulitis --05/23 C.diff: antigen+ antibody+; stool with consistency --mild leukocytosis, afebrile --treated with PO vanc x 6 days, needs 4 more days as outpatient --stool cultures negative Iron-deficiency anemia r/o blood loss anemia --Hgb 9.0, stable, occult stool +, no overt bleeding --treated with protonix x 1 week --ASA held --continued iron supplements Generalized fatigue --likely multifactorial: UTI, C. diff, chronic iron-deficiency anemia, decreased PO intake over past month-->7lb weight loss Hyperlipidemia --continued Lipitor Hypothyroidism --TSH low, decreased levothyroxine 137mcg AAA repair --recently underwent endovascular repair of 8 cm AAA --CTA shows the aneurysm sac has decreased in size to 5 cm and there is evidence of a small endoleak --seen and evaluated by Dr. Blankenship, no surgical intervention indicated; f /u ultrasound in 3 months T12 vertebral fracture --secondary to mechanical fall at home on 03/30/18 --continued duragesic patch 12mcg Minutes to complete discharge: 35 Discharge Summary Reason For Visit: COUGH Current Active Problems Anemia (Acute) C. difficile colitis (Acute) Functional quadriplegia (Acute) S/P AAA repair (Acute) Severe protein-calorie malnutrition (Acute) T12 compression fracture (Acute) UTI (urinary tract infection) (Acute) Weakness generalized (Acute) Condition: Improved - Instructions Diet, Activity, Other Instructions: A prescription has been sent to your pharmacy for oral vancomycin. Take this medication as directed and be sure to finish all the medication. A prescription has also been sent to your pharmacy for levothyroxine at a LOWER dose. Please take this medication and follow up with your primary care provider in 6 weeks to have your thyroid levels checked. Continue to take your iron supplements. It is recommended you stop taking aspirin due to your anemia. You should follow up with Dr. Blankenship for an ultrasound of your abdomen in 3 months. A PREVIOUS PRESCRIPTION WAS CALLED TO YOUR PHARMACY FOR CEFUROXIME, AN ANTIBIOTIC. YOU DO NOT NEED THIS MEDICATION. TELL THE PHARMACY YOU DO NOT WANT THIS MEDICATION. Disposition: HOME - Home Medications Comprehensive Discharge Medication List: Ambulatory Orders Cholecalciferol (Vitamin D3) [Vitamin D3] 1,000 unit PO BID 03/30/18 Cyanocobalamin [Vitamin B12 -] 1,000 mcg PO DAILY 03/30/18 Donepezil HCl [Aricept] 10 mg PO HS 03/30/18 Escitalopram Oxalate [Lexapro -] 10 mg PO HS 03/30/18 Simvastatin [Zocor -] 20 mg PO DAILY 03/30/18 Fentanyl 12 mcg TD Q72H 05/17/18 Latanoprost/Pf [Latanoprost 0.005% Eye Drop] 1 drop OU HS 05/17/18 Multivit-Min/Folic Acid/Vit K1 [Multi For Her 50 Plus Softgel] 1 each PO DAILY 05/17/18 Ferrous Sulfate [Feosol] 325 mg PO BIDWM ud 05/29/18 Levothyroxine [Synthroid -] 137 mcg PO DAILY@0700 #30 tablet 05/29/18 Vancomycin Oral Solution 125 mg PO QID #16 ml 05/29/18 This patient is new to me today: No Emergency Visit: Yes ED Registration Date: 05/17/18 Care time: The patient presented to the Emergency Department on the above date and was hospitalized for further evaluation of their emergent condition. Critical Care patient: No - Discharge Referral Referred to [facility] No
[2018-05-29] MEDS: ESCITALOPRAM OXALATE 10 MG TABLET (FP) PO SCH (21:52)
[2018-05-29] MEDS: LATANOPROST 0.005% OPHTH SOLN 2.5ML BOTTLE OU SCH (21:52)
[2018-05-29] MEDS: ATORVASTATIN CA 10 MG TABLET (FP) PO SCH (21:52)
[2018-05-29] MEDS: DONEPEZIL HCL 10 MG TABLET (FP) PO SCH (21:52)
[2018-05-29] MEDS: ACETAMINOPHEN 325 MG TABLET (FP) PO PRN (21:53)
[2018-05-29 23:22] VITALS: PULSE 93; TEMP 97.8
[2018-05-30] MEDS ORDERED: LEVOTHYROXINE NA 112 MCG TABLET (FP) ONE (06:26)
[2018-05-30] MEDS ORDERED: LEVOTHYROXINE NA 25 MCG TABLET (FP) ONE (06:26)
[2018-05-30] MEDS: VANCOMYCIN 250 MG/5 ML ORAL SOLUTION PO SCH (07:09)
[2018-05-30] MEDS: LEVOTHYROXINE 112 MCG, LEVOTHYROXINE 25 MCG PO SCH (07:10)
[2018-05-30] MEDS ORDERED: ACETAMINOPHEN 325 MG TABLET (FP) PO PRN (08:07)
[2018-05-30] MEDS ORDERED: FENTANYL PATCH WASTE MC PRN (08:07)
[2018-05-30] MEDS ORDERED: ARTIFICIAL TEARS (POLYVINYL ALCOHOL) OPTH DROPS OU PRN (08:07)
[2018-05-30] MEDS ORDERED: FENTANYL PATCH WASTE TD PRN (08:07)
[2018-05-30] MEDS: fentaNYL 12mcg/hr PATCH.TD72 TD SCH ×2 (09:36→10:02)
[2018-05-30] MEDS ORDERED: FERROUS SO4 325 MG TABLET (FP) PO SCH (09:45)
[2018-05-30] MEDS ORDERED: PANTOPRAZOLE 40 MG TABLET (FP) PO SCH (10:00)
[2018-05-30] MEDS: FERROUS SO4 325 MG TABLET (FP) PO SCH (10:02)
[2018-05-30] MEDS ORDERED: VANCOMYCIN 250 MG/5 ML ORAL SOLUTION PO SCH (12:00)
[2018-05-30 14:43] VITALS: BP 111/66
[2018-05-30] MEDS ORDERED: DONEPEZIL HCL 10 MG TABLET (FP) PO SCH (22:00)
[2018-05-30] MEDS ORDERED: ATORVASTATIN CA 10 MG TABLET (FP) PO SCH (22:00)
[2018-05-30] MEDS ORDERED: LATANOPROST 0.005% OPHTH SOLN 2.5ML BOTTLE OU SCH (22:00)
[2018-05-30] MEDS ORDERED: ESCITALOPRAM OXALATE 10 MG TABLET (FP) PO SCH (22:00)
[2018-05-31] MEDS ORDERED: LEVOTHYROXINE 112 MCG, LEVOTHYROXINE 25 MCG PO SCH (07:00)
== END 2018-05-30 14:34 | disposition home or self-care (01) | DRG 689 ==
LOC: JER 14:06 → JERBED 15:14 → J8W 17:42 → J4W 05-24 16:51 → J8W 05-30 00:42
PROVIDERS: ADMIT Internal Medicine; ATTEND Nurse Practitioner Acute Care
DX: N39.0 Urinary tract infection, site not specified (principal); E43 Unspecified severe protein-calorie malnutrition; A04.72 Enterocolitis due to Clostridium difficile, not specified as recurrent; E03.9 Hypothyroidism, unspecified; E78.5 Hyperlipidemia, unspecified; Z87.891 Personal history of nicotine dependence; D64.9 Anemia, unspecified; R53.1 Weakness; R19.7 Diarrhea, unspecified; D50.9 Iron deficiency anemia, unspecified; E87.6 Hypokalemia; Z66 Do not resuscitate; S22.089D Unspecified fracture of T11-T12 vertebra, subsequent encounter for fracture with routine healing; W19.XXXD Unspecified fall, subsequent encounter
CPT/HCPCS: 36415; 71046-TC-FY; 74177-TC; 80048; 80053; 80076; 81003; 81015; 82272; 82550; 82728; 83010; 83540; 83550; 83605; 83615; 83690; 83735; 83880; 84100; 84443; 84484; 85025; 85027; 85044; 85651; 86140; 86850; 86900; 86901; 87040; 87045; 87046; 87086; 87324; 87449; 90688; 93005; 93010; 97116-GP; 97161-GP; 99282-25; G0008; J7030